=== PATIENT | male | born 1950 | race Caucasian/White ===

== ENCOUNTER 2018-01-16 05:49 | Inpatient (IN) | payer MEDICARE, OTHER ==
[2018-01-16 06:18] LABS: #Eosinphils 0.2 thou/uL (0.0-0.7); #Lymphocytes 1.6 thou/uL (1.20-3.40); #Monocytes 0.7 thou/uL (0.11-0.59); #Neutrophils 5.7 thou/uL (1.40-6.50); %Basophils 0.1 % (0.0-1.0); %Eosinophils 2.5 % (0.0-10.0); %Monocytes 8.2 % (0.0-10.0); %Neutrophils 70.2 % (42.0-75.0); Hemoglobin 14.5 g/dL (14.0-18.0); Mean Corpuscular HGB CONC 34.6 g/dL (32.0-36.0); Mean Corpuscular Hemoglobin 32.7 pg (27.0-31.0); Mean Corpuscular Volume 94.7 fl (80.0-94.0); Mean Platelet Volume 7.2 fL (7.4-10.4); Platelet Count 142 thou/uL (130-400); RBC Distribution Width 12.6 % (11.5-14.5); Red Blood Cell (RBC) Count 4.44 mill/uL (4.70-6.10); White Blood Cell (WBC) Count 8.2 thou/uL (4.8-10.8)
[2018-01-16 06:32] LABS: ALT (SGPT) 27 U/L (8-55); AST (SGOT) 21 U/L (5-34); Albumin 4.6 g/dL (3.4-4.8); Alkaline Phosphatase 46 U/L (40-150); Anion Gap 23 mmol/L (10-20); BUN (Urea Nitrogen) 16 mg/dL (8.4-25.7); Bilirubin, Total 0.4 mg/dL (0.2-1.2); Calc. Creatinine Clearance 0 mL/min (70-130); Calcium 9.6 mg/dL (7.8-10.44); Carbon Dioxide 21 mmol/L (23-31); Chloride 92 mmol/L (98-107); Estimated GFR-MDRD 67; Glucose 178 mg/dL (80-115); Magnesium 1.9 mg/dL (1.6-2.6); Potassium 3.5 mmol/L (3.5-5.1); Protein, Total 7.6 g/dL (5.8-8.1); Sodium 132 mmol/L (136-145)
[2018-01-16 06:36] LABS: CKMB 2.2 ng/mL (0-6.6); Troponin I Less than 0.010 ng/mL (< 0.028)
[2018-01-16] MEDS ORDERED: Enoxaparin Sodium 100 MG/ML SYRINGE ONE (07:25)
--- NOTE | 2018-01-16 07:56 | RAD ---
PORTABLE CHEST: HISTORY: Chest pain. COMPARISON: 05/09/13. FINDINGS: Cardiomegaly with postop sternotomy change. AICD leads. Lung jarrett are clear. No evidence of vasc ular congestion or edema. No evidence of focal infiltrate or effusion. IMPRESSION: Cardiomegaly. No acute lung process. POS: [facility]
[2018-01-16] MEDS ORDERED: Magnesium Sulfate 2 GM/100 ML BAG ONE (07:59)
[2018-01-16] MEDS ORDERED: Amiodarone HCl 450 MG in Dextrose 5% in Water 250 ML IVPB SCH ×2 (08:30→16:45)
[2018-01-16] MEDS ORDERED: NS 0.9% w/ 40 MEQ KCL 1,000 ML IV SCH (08:45)
[2018-01-16 09:19] LABS: Troponin I 0.013 ng/mL (< 0.028)
[2018-01-16 09:48] VITALS: BMI 34.3
[2018-01-16] MEDS ORDERED: Prevnar 13-Val Conj/PF 0.5 ML SYRINGE IM ONE (10:30)
[2018-01-16] MEDS ORDERED: Potassium Chloride 20 MEQ TAB PO SCH (11:15)
--- NOTE | 2018-01-16 11:29 | CON ---
DATE OF CONSULTATION: 01/16/2018 SERVICE: Pulmonary Medicine REASON FOR CONSULTATION: ICU patient. HISTORY OF PRESENT ILLNESS: The patient is a 67-year-old white male with past medical history significant for coronary artery disease. He has a defibrillator in place. He developed unstable angina over a short period of time. He presented to the Emergency Department with chest discomfort. He was going to be placed in observation, but developed a wide complex tachyarrhythmia. He underwent defibrillation and was subsequently transitioned to the ICU for very close observation. He currently denies any chest pain, nausea, vomiting, fevers or chills. He is breathing comfortably. He is on room air and has no complaints. He does not appear septic. He returned into a sinus rhythm with a bundle branch. PAST MEDICAL HISTORY: 1. Coronary artery disease. 2. Chronic systolic heart failure. 3. Hypertension. 4. Dyslipidemia. 5. Hypothyroidism. 6. Major depressive disorder. 7. Type 2 diabetes mellitus. PAST SURGICAL HISTORY: 1. Coronary bypass graft in 2002 with redo in 2010. 2. Percutaneous coronary intervention in 2012. ALLERGIES: No known drug allergies. MEDICATIONS: A list of his inpatient medications were reviewed. No specific updates were made at this time. FAMILY HISTORY: Noncontributory. SOCIAL HISTORY: He drinks beer on most days. He quit smoking a long time ago and only a [id number] history of smoking. He does not do illicit drugs. He has no exposure to chemicals, dust, asbestos or tuberculosis. REVIEW OF SYSTEMS: General, head, ears, eyes, nose, throat, cardiovascular, respiratory, GI, , musculoskeletal, neurologic and skin is negative except as mentioned in the HPI. PHYSICAL EXAMINATION: VITAL SIGNS: Afebrile, pulse 81, blood pressure 118/65, respirations 20, saturation 96% on 2 liters nasal cannula. . GENERAL: The patient awake, alert, in no apparent distress. LUNGS: Excellent air entry. There is no prolonged expiratory phase or wheezing present. HEART: Normal rate, regular. ABDOMEN: Soft, nontender, nondistended. Bowel sounds are positive. MUSCULOSKELETAL: No cyanosis or clubbing. There is trace pitting in the bilateral lower extremities. NEUROLOGIC: Grossly nonfocal. LABORATORY DATA: WBC 8.2, hemoglobin 14.5, platelets 142,000. D-dimer less than 0.27. Creatinine 1.09, potassium 3.5. Liver function studies are essentially unremarkable. BNP 368, which is slightly above baseline. Troponin 0.013 and barely up trending. IMAGING: Chest x-ray demonstrates AICD pacemaker in place. There are sternotomy wires that are evident. There is an enlarged cardiac silhouette, but I do not identify any acute pleural parenchymal abnormalities. Echocardiogram from 2012 demonstrated 20-25% ejection fraction, atrial enlargement, moderate mitral regurgitation. ASSESSMENT: 1. Acute hypoxic respiratory failure, minimal. 2. Acute on chronic systolic and valvular heart failure. 3. Wide complex tachyarrhythmia, status post cardioversion and returned to sinus rhythm. DISCUSSION AND PLAN: The patient will undergo evaluation by Cardiology. I will replace potassium and check a magnesium tomorrow morning. Pulmonary Critical Care will continue to follow along while he is watched very closely on telemetry in the ICU for the next 24 hours. 70 minutes have been devoted to this patient in various activities. I personally reviewed all imaging studies and laboratory data noted within this document. For fifty percent of this time, I was interacting with the patient at the bedside or coordinating care with the care team. For the remainder of the time I was immediately available to the patient in the hospital unit. MISA
[2018-01-16] MEDS ORDERED: Ondansetron ODT 4 MG TAB PO PRN (12:07)
[2018-01-16] MEDS ORDERED: HumaLOG 300 UNITS/3 ML VIAL SC PRN ×2 (12:07)
[2018-01-16] MEDS ORDERED: HYDROcodone/Acetaminophen 5/325 mg Tablet PO PRN (12:07)
[2018-01-16] MEDS ORDERED: Dextrose 50% Abboject 50 ML SYRINGE SLOW IVP PRN (12:07)
[2018-01-16] MEDS ORDERED: Ondansetron HCl/PF 4 MG/2 ML Vial IVP PRN (12:07)
[2018-01-16] MEDS ORDERED: Dextrose 5% in Water 1,000 ML IV PRN (12:07)
[2018-01-16] MEDS ORDERED: Acetaminophen 325 MG TAB PO PRN (12:07)
[2018-01-16 12:48] LABS: CKMB 3.9 ng/mL (0-6.6); Troponin I 0.011 ng/mL (< 0.028)
--- NOTE | 2018-01-16 15:00 | HP ---
PRIMARY CARE PHYSICIAN: Dr Eliazar Sol. DATE OF ADMISSION: 01/16/2018 TIME OF SERVICE: 1220 hours. CHIEF COMPLAINT: Chest pain. HISTORY OF PRESENT ILLNESS: Mr. Moreau is a 67-year-old male with history of chronic alcohol use, i schemic cardiomyopathy and EF around 18%, followed by Dr. Rex Zamudio, hypothyroidism, hypertensi on, hyperlipidemia, diabetes, and known coronary disease with a CABG in the past, who presents to the emergency department today with chest pressure. Patient had an episode of chest pressure yesterday lasting just a few minutes. EMS was called and ca me to his residence. They gave him some sublingual nitro. He immediately felt better, so decided no t to be transported. He did well overnight, but this morning around 6:00 a.m., had recurrence. EMS came and gave him anot her nitro and his symptoms resolved and he was subsequently transported to the emergency department. Here, he was seen and evaluated. Initial biomarkers were negative. EKG was unremarkable, during the monitoring process. Patient did develop a 10-beat run of nonsustained ventricular tachycardia. His AICD did not shock him at that time. We were subsequently called for admission. After that call, patient developed sustained ventricular tachycardia and some chest discomfort and sh ortness of breath. He was subsequently deemed to be unstable, was sedated and cardioverted. He was transferred to the ICU post-procedure. Patient denies any fevers or chills, nausea, and vomiting. Chest discomfort he had during his episod es of V-tach was the same as he had last night and early this morning. Cardiology has been made aware. No other current complaints. He never had anything like this before. He has never had an AICD disch arge. He has followup with Dr. Zamudio last time about a month ago. At that time, he was found to have an AICD that may need upgrade to a dual lead, but he does not know what the status of his battery was. No other current complaints. PAST MEDICAL HISTORY: 1. Chronic systolic congestive heart failure with EF of 18%. 2. Ischemic cardiomyopathy. 3. Hypothyroidism, acquired. 4. Hypertension, essential. 5. Hyperlipidemia, unspecified. 6. Diabetes mellitus type 2, non-insulin dependent. 7. Coronary artery disease. PAST SURGICAL HISTORY: Includes, 1. Coronary bypass grafting, the first surgery at age of 36, second one several years ago. 2. AICD implantation about 7 years ago. 3. Cholecystectomy remotely. 4. Bilateral cataract repair. HOME MEDICATIONS: 1. Lasix 40 mg daily. 2. Plavix 75 mg daily. 3. Coreg 12.5 mg p.o. b.i.d. 4. Aspirin 325 mg daily. 5. Multivitamin daily. 6. Losartan 50 mg p.o. daily. 7. Levothyroxine 100 mcg daily. 8. Crestor 20 mg p.o. at bedtime. 9. Paxil 20 mg daily. 10. Metformin 1000 mg p.o. b.i.d. 11. CoQ10 of 100 mg daily. ALLERGIES: PENICILLIN causes a rash. FAMILY HISTORY: Significant for mom and dad living and well into their 90s. They both now. SOCIAL HISTORY: Drinks 4-5 drinks a day. He does not know that he has ever gone with more than 48 h ours without an alcoholic beverage. He does not get shaky or have any agitation or DTs at 48-hour ma rk. He used tobacco in the past, but has not smoked in number of years. No IV drug use. 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 REVIEW OF SYSTEMS: All systems reviewed and negative except as stated as per HPI. PHYSICAL EXAMINATION: VITAL SIGNS: Temperature 98.3, pulse 81, blood pressure 124/61, respiratory rate 17, sat 98% on 3 li ters. GENERAL: He is awake. He is alert. He is oriented x3. He is an obese white male, appears to be in no acute distress. HEENT: Normocephalic, atraumatic. Pupils equal, round and reactive bilaterally. Central faces, has increased erythema, has almost a rhinophyma. Mucous membranes are moist. No visible lesions, no th sevilla. NECK: Supple. No lymphadenopathy, JVD, or thyromegaly. He has normal carotid upstroke. I do not a ppreciate bruits. LUNGS: Clear to auscultation bilaterally. No wheezes, no rales, no rhonchi. Good air movement. Sy mmetrical chest excursion. No prolonged expiratory phase. CARDIOVASCULAR: Normal S1 and S2. Has a faint 2/6 holosystolic murmur best heard at the left upper sternal border, does not radiate. ABDOMEN: Obese, it is nontender, nondistended, no mass or organomegaly. He did not feel any fluid. EXTREMITIES: Show no cyanosis, no clubbing. He has got 1+ peripheral edema. SKIN: Warm, moist, and well perfused. He has no other rash or lesions. NEUROLOGIC: Cranial nerves II-XII are grossly intact. There are no focal neurologic deficits. He h as normal speech pattern, 5/5 strength in all 4 extremities. MUSCULOSKELETAL: Normal to inspection. Large joints appear normal. There is no evidence of inflamm ation or palpable effusions. LABORATORY DATA: Sodium is 132, potassium 3.5, chloride 97, bicarbonate 26, BUN 16, creatinine 1.09 from his baseline around 0.8. Glucose 178. Liver function completely within normal limits. CBC ivan wed a white count of 8.2, hemoglobin 14.5, hematocrit 42.0, platelet count is 142,000. D-dimer was undetectable less than 0.27. BNP elevated at 368, CK-MB normal at 2.2. Initial troponin I is less than 0.010, repeat after cardioversion of 0.013. Chest x-ray showing no acute cardiopulmonary disease. ASSESSMENT AND PLAN: 1. Unstable angina: The patient has escalated symptoms present during episodes of sustained and non sustained ventricular tachycardia. Patient will be admitted to the Critical Care Unit on an amiodaro ne drip. We will continue his Coreg, we will hold his losartan at present. I will continue his aspi rin daily. Cardiology consultation has been requested. Patient will be seen by Pulmonary Critical C are. We will get serial cardiac biomarkers, and follow up with Cardiology recommendations. 2. Ventricular tachycardia, sustained. AICD did not shock him. We will get an AICD interrogation. We will ask cardiology's opinion. 3. Elevated troponin, undetectable to 0.013 either demand ischemia, likely elevated from his cardiov ersion. We will trend these out. 4. Diabetes mellitus type 2, non-insulin dependent. Hold metformin. Use sliding scale insulin for correction. 5. History of coronary artery disease as above. 6. Hyperlipidemia, on Crestor. We will continue. 7. Hypertension, essential. Patient is on losartan, Lasix, Coreg daily. We will continue these at present. 8. Hypothyroidism, on replacement. We will continue. 9. Chronic systolic congestive heart failure secondary to ischemic cardiomyopathy. There does not a ppear to be any florid heart failure present. I will continue to monitor.
--- NOTE | 2018-01-16 15:33 | CON ---
DATE OF CONSULTATION: 01/16/2018 CRITICAL CARE NOTE CRITICAL CARE TIME: 30 minutes. HISTORY OF PRESENT ILLNESS: This is an unfortunate 67-year-old gentleman with a history of severe ischemic cardiomyopathy who presents with chest discomfort and palpitations. The patient has previously undergone coronary artery bypass surgery in 1996. He underwent a second coronary artery bypass surgery in 2010. He had a RAM placed to the LAD and a saphenous vein graft to PDA in 2012. The patient underwent repeat cardiac catheterization and had PTCA and stent placed into the saphenous vein graft to the right coronary artery. The patient had been in his usual state of health when he developed chest discomfort. He states chest discomfort and palpitations. The patient was noted to have a very rapid heart rate. He was in ventricular tachycardia and underwent an electrical cardioversion. The patient denies having any present palpitations or chest discomfort. PAST MEDICAL HISTORY: 1. Ischemic cardiomyopathy. 2. Hypertension. MEDICATIONS: See nursing list. SOCIAL HISTORY: Former smoker, quit in 1986. FAMILY HISTORY: Strong family history of heart disease. MEDICATIONS: Lasix 40 daily, Plavix 75 daily, Coreg 12.5 b.i.d., aspirin 325 daily, losartan 50 daily, Synthroid 100 mcg daily, Crestor 20 at bedtime, and metformin 1000 b.i.d. PHYSICAL EXAMINATION: GENERAL: This is an elderly gentleman in no acute distress. VITAL SIGNS: Blood pressure was 102/67. NECK: Showed no jugular distention. LUNGS: Clear to auscultation. HEART: Regular rate and rhythm with a normal S1, S2. ABDOMEN: Distended. EXTREMITIES: Showed trace edema. LABORATORY RESULTS: Revealed he had a white blood count 8.2, hemoglobin 14.5, hematocrit 42.0, and platelets 142. Sodium is 132, potassium 3.5, chloride 92, bicarbonate 21, BUN 16, creatinine 1.0, troponin less than 0.11. BNP 368. His EKG revealed sustained ventricular tachycardia. IMPRESSION: 1. Ventricular tachycardia. 2. History of coronary artery bypass surgery on 2 occasions. 3. History of PTCA stent placed in the right coronary artery bypass graft. 4. Hypertension. 5. Diabetes mellitus. 6. Dyslipidemia. This gentleman presents with a ventricular tachycardia. This appears to be a primary arrhythmia. We will ask EP to evaluate. The patient has been started on amiodarone. We will follow this patient with you throughout his hospitalization. Continue IV amiodarone. MTDD
[2018-01-16] MEDS: Carvedilol 6.25 MG TAB PO SCH (16:41)
[2018-01-16] MEDS ORDERED: Enoxaparin Sodium 100 MG/ML SYRINGE SC SCH ×2 (19:30→21:00)
[2018-01-16] MEDS: Rosuvastatin 20 MG TAB PO SCH (20:53)
[2018-01-16] MEDS: Famotidine 20 MG TAB PO SCH (20:53)
[2018-01-16 21:02] LABS: CKMB 3.2 ng/mL (0-6.6); Troponin I Less than 0.010 ng/mL (< 0.028)
[2018-01-17 04:40] LABS: Anion Gap 14 mmol/L (10-20); BUN (Urea Nitrogen) 14 mg/dL (8.4-25.7); Calc. Creatinine Clearance 119 mL/min (70-130); Calcium 9.2 mg/dL (7.8-10.44); Carbon Dioxide 25 mmol/L (23-31); Cardiac Risk 2.8 (Less than 4.5); Chloride 104 mmol/L (98-107); Cholesterol 87 mg/dl (< 200 Desired); Estimated GFR-MDRD 87; Glucose 131 mg/dL (80-115); HDL Cholesterol 31 mg/dL (>60 Neg Risk); Hemoglobin A1c 7.1 % (4.0-6.0); LDL Cholesterol, Calculated 23 mg/dL; Magnesium 2.1 mg/dL (1.6-2.6); Phosphorus 3.2 mg/dL (2.3-4.7); Sodium 139 mmol/L (136-145); Triglycerides 165 mg/dL (Less than 150)
[2018-01-17 04:45] LABS: Troponin I Less than 0.010 ng/mL (< 0.028)
[2018-01-17 05:23] LABS: #Eosinphils 0.2 thou/uL (0.0-0.7); #Lymphocytes 1.6 thou/uL (1.20-3.40); #Monocytes 0.6 thou/uL (0.11-0.59); #Neutrophils 3.6 thou/uL (1.40-6.50); %Basophils 0.1 % (0.0-1.0); %Eosinophils 3.9 % (0.0-10.0); %Lymphocytes 26.4 % (21.0-51.0); %Monocytes 10.6 % (0.0-10.0); Band 2 % (5-11); Hemoglobin 13.2 g/dL (14.0-18.0); Lymphocytes 33 % (21-51); MDiff Complete? YES; Macrocytosis SLIGHT = 6-15 cells (100X) (0-5/hpf); Mean Corpuscular HGB CONC 35.1 g/dL (32.0-36.0); Mean Corpuscular Hemoglobin 33.2 pg (27.0-31.0); Mean Corpuscular Volume 94.5 fl (80.0-94.0); Mean Platelet Volume 7.1 fL (7.4-10.4); Monocytes 8 % (0-10); Neutrophil 56 % (42-75); PLT Morphology Comment Appears Decreased; Platelet Count 112 thou/uL (130-400); RBC Distribution Width 12.4 % (11.5-14.5); Reactive Lymphocytes 1 % (0-10); Red Blood Cell (RBC) Count 3.98 mill/uL (4.70-6.10); White Blood Cell (WBC) Count 6.1 thou/uL (4.8-10.8)
[2018-01-17] MEDS: Levothyroxine Sodium 100 MCG TAB PO SCH (06:26)
--- NOTE | 2018-01-17 08:57 | PRG ---
DATE OF SERVICE: 01/17/2018 SERVICE: Pulmonary Medicine INTERVAL HISTORY: The patient is doing fine from a respiratory standpoint. He is not having any chest pressure. He did not have any events on telemetry. Otherwise, there has been no interval change to his condition. PHYSICAL EXAMINATION: VITAL SIGNS: Afebrile, pulse 73, blood pressure 108/55, respirations 22, saturation 95% on room air. GENERAL: The patient is awake, alert, no apparent distress. LUNGS: Excellent air entry without prolonged expiratory phase, wheezing, rhonchi or crackles. HEART: Normal rate, regular. ABDOMEN: Soft, nontender, nondistended. Bowel sounds are positive. MUSCULOSKELETAL: No cyanosis or clubbing. No pitting in the bilateral lower extremities. NEUROLOGIC: Grossly nonfocal. LABORATORY DATA: WBC 6.1, hemoglobin 13.2, platelets 112,000. D-dimer 0.27. Basic metabolic profile; magnesium, phosphorus, and cholesterol are essentially unremarkable other than a slightly elevated triglyceride level. Cardiac enzymes are negative x2. ASSESSMENT: 1. Acute hypoxic respiratory failure, minimal. 2. Acute on chronic systolic and valvular heart failure. 3. Ventricular tachycardia, status post cardioversion and return to sinus rhythm. DISCUSSION AND PLAN: The patient is stable for transition out of the IMCU to the telemetry unit. We will continue to monitor his heart on telemetry. We will work on moving him a little bit more today. Pulmonary Critical Care will continue to follow him while he remains in house, but he may benefit from an outpatient polysomnogram. MISA
[2018-01-17] MEDS: Furosemide 40 MG TAB PO SCH (09:00)
[2018-01-17] MEDS: PARoxetine 20 MG TAB PO SCH (09:00)
[2018-01-17] MEDS: Carvedilol 6.25 MG TAB PO SCH ×2 (09:00→16:19)
[2018-01-17] MEDS: Clopidogrel Bisulfate 75 MG TAB PO SCH (09:00)
[2018-01-17] MEDS: Losartan 25 MG TAB PO SCH (09:00)
[2018-01-17] MEDS ORDERED: Aspirin 325 MG TAB PO SCH (09:00)
[2018-01-17] MEDS: Famotidine 20 MG TAB PO SCH ×2 (09:00→20:53)
[2018-01-17] MEDS: Enoxaparin Sodium 100 MG/ML SYRINGE SC SCH ×2 (09:01→20:53)
--- NOTE | 2018-01-17 11:31 | EKG ---
Test Reason : POST SHOCK Blood Pressure : / mmHG Vent. Rate : 084 BPM Atrial Rate : 084 BPM P-R Int : 236 ms QRS Dur : 208 ms QT Int : 470 ms P-R-T Axes : 063 -80 079 degrees QTc Int : 555 ms Sinus rhythm with 1st degree A-V block Right bundle branch block Left anterior fascicular block Bifascicular block Left ventricular hypertrophy with repolarization abnormality Cannot rule out Septal infarct , age undetermined Abnormal ECG V-tach resolved Confirmed by AVELINO PEREZ M.D. ([id number]), tape editor ADALBERTO CONDON ([id number] on 01/17/2018 11:31:39 AM Referred By: Confirmed By:AVELINO PEREZ M.D.
--- NOTE | 2018-01-17 11:31 | EKG ---
Test Reason : Blood Pressure : / mmHG Vent. Rate : 095 BPM Atrial Rate : 095 BPM P-R Int : 190 ms QRS Dur : 210 ms QT Int : 452 ms P-R-T Axes : 062 -82 078 degrees QTc Int : 568 ms Sinus rhythm with frequent Premature ventricular complexes Left axis deviation Right bundle branch block Septal infarct , age undetermined Abnormal ECG No changes Confirmed by ANA Keller, AVELINO ([id number]), film or videotape editor ADALBERTO CONDON ([id number]) on 01/17/2018 11:31:02 AM Referred By: ANA Confirmed By:AVELINO PEREZ M.D.
--- NOTE | 2018-01-17 13:25 | PDOC.PN ---
- Subjective Encounter Start Date: 01/17/18 Encounter Start Time: 10:50 Pt sleeping, but easily arousable. breathing fine. no more CP, no VTach, no F/C , no N/V/d/c. ricki amio. Pacer interrogated and low rate too low, adjusted No New complaints All systems reviewed and neg x as above - Objective Resuscitation Status: Resuscitation Status FULL:Full Resuscitation MAR Reviewed: Yes Vital Signs & Weight: Vital Signs (12 hours) Temp Pulse Resp BP BP Pulse Ox 01/17/18 11:00 97.6 F 76 18 123/64 93 L 01/17/18 09:00 120/67 01/17/18 08:00 98.0 F 73 22 H 01/17/18 07:50 98.0 F 73 22 H 108/55 L 95 01/17/18 04:00 97.9 F 68 18 133/72 01/17/18 01:52 97 Weight Weight 230 lb 12.8 oz Most Recent Monitor Data Heart Rate from ECG 72 NIBP 128/74 NIBP BP-Mean 95 Respiration from ECG 13 SpO2 97 I&O: 01/16/18 01/17/18 01/18/18 06:59 06:59 06:59 Intake Total 200 Output Total 3050 Balance -2850 Result Diagrams: 01/17/18 04:11 01/17/18 04:11 Additional Labs: Accuchecks 01/17/18 01/16/18 01/16/18 10:32 20:46 16:28 POC Glucose 204 H 148 H 148 H 01/16/18 14:07 POC Glucose 136 H Phys Exam - Physical Examination Constitutional: NAD HEENT: PERRLA, moist MMs, sclera anicteric, oral pharynx no lesions Neck: no nodes, no JVD, supple, full ROM Respiratory: no wheezing, no rales, no rhonchi, clear to auscultation bilateral Cardiovascular: RRR, no significant murmur, no rub Gastrointestinal: soft, non-tender, no distention, positive bowel sounds Musculoskeletal: pulses present, edema present Neurological: non-focal, normal sensation, moves all 4 limbs Lymphatic: no nodes Psychiatric: normal affect, A&O x 3 Skin: no rash, normal turgor, cap refill <2 seconds Dx/Plan (1) Ventricular tachycardia (paroxysmal) Code(s): I47.2 - VENTRICULAR TACHYCARDIA Status: Acute (2) Unstable angina Status: Resolved (3) DM2 (diabetes mellitus, type 2) Status: Chronic Qualifiers: Diabetes mellitus co founder & ceo insulin use: without co founder & ceo use Diabetes mellitus complication detail: with peripheral angiopathy without gangrene (4) HTN (hypertension) Code(s): I10 - ESSENTIAL (PRIMARY) HYPERTENSION Status: Chronic Qualifiers: Hypertension type: essential hypertension Qualified Code(s): I10 - Essential (primary) hypertension (5) HLD (hyperlipidemia) Code(s): E78.5 - HYPERLIPIDEMIA, UNSPECIFIED Status: Chronic Qualifiers: Hyperlipidemia type: unspecified Qualified Code(s): E78.5 - Hyperlipidemia , unspecified (6) Hypothyroidism Code(s): E03.9 - HYPOTHYROIDISM, UNSPECIFIED Status: Chronic Qualifiers: Hypothyroidism type: acquired Qualified Code(s): E03.9 - Hypothyroidism, unspecified (7) CAD (coronary artery disease) Code(s): I25.10 - ATHSCL HEART DISEASE OF [place] CORONARY ARTERY W/O ANG PCTRS Status: Chronic Qualifiers: Coronary Disease-Associated Artery/Lesion type: bypass graft [place] vs. transplanted heart: [place] heart Associated angina: with unstable angina Qualified Code(s): I25.700 - Atherosclerosis of coronary artery bypass graft(s) , unspecified, with unstable angina pectoris - Plan cont current plan of care, plan discussed w/ family * . await EP consult. continue amio. franciscoer to tele
--- NOTE | 2018-01-17 14:55 | CON ---
DATE OF CONSULTATION: 01/17/2018 ELECTROPHYSIOLOGY CONSULTATION Katie SHEPARD dictating the scribe for Ron Hardy M.D. REASON FOR CONSULTATION: ICD discharge and ventricular tachycardia. HISTORY OF PRESENT ILLNESS: Mr. Moreau is a very pleasant, but unfortunate gentleman with a history of severe ischemic cardiomyopathy. He presented with chest pain and palpitations that were lasting 15-20 minutes at home. He has a history significant for myocardial infarction with bypass in 1996. He had a second bypass surgery in 2010 and additional stent of one of his saphenous vein grafts to th e PDA in 2012. He is known to our clinic, does have inclusion of a dual chamber ICD and was last see n in 09/2016. He continues to be in NYHA functional class 2-3 and that was in his usual state of hea lt, but did begin to experience persisting chest discomfort as well as some palpitations. When he p resented to the emergency room, he was found to be in ventricular tachycardia and underwent cardiover florence in the emergency room. He was started on amiodarone which continues to be administered via IV d rip. PAST MEDICAL HISTORY: 1. Coronary artery disease with prior myocardial infarction. 2. Coronary artery bypass graft surgery as well as PCI. Ischemic cardiomyopathy with an EF most rec ently estimated at 15-20%. 3. NYHA functional class 3. 4. Diabetes. 5. Dual chamber ICD in situ. 6. Peripheral vascular disease, status post left iliac vein graft and subsequent stenting. 7. Right iliac complete occlusion. 8. Dyslipidemia. 9. Underlying right bundle-branch block with left anterior fascicular block. ALLERGIES: None. HOME MEDICATIONS: Lasix 40 mg daily, Plavix 75 mg daily, Coreg 12.5 mg b.i.d., aspirin 325 mg daily, losartan 50 mg daily, Synthroid 100 mcg daily, Crestor 20 mg p.o. at bedtime, metformin 1000 mg b.i. d. SOCIAL HISTORY: History of tobacco habituation, quit in 1986. FAMILY HISTORY: Strongly positive for coronary artery disease. PHYSICAL EXAMINATION: GENERAL: Well-nourished, well-groomed, gentleman in no apparent distress. He is alert and oriented. Speech is clear. Affect is appropriate. NECK: Supple, without jugular venous distention. LUNGS: Clear to auscultation bilaterally. Respirations are even and unlabored. HEART: Heart rate is regularly regular with a normal S1, S2. PMI is faint, but palpable. ABDOMEN: Obese, soft, and nontender with distant bowel sounds noted throughout. EXTREMITIES: Warm and dry to touch without clubbing, cyanosis, but with trace edema bilaterally. NEUROLOGIC: Grossly intact and nonfocal. LABORATORY AND X-RAY FINDINGS: Hemoglobin 13.2, hematocrit 37.6, platelet count is 112. Chemistry w as reviewed and is unremarkable. Telemetry and EKG reveals sinus rhythm with an atypical left bundle branch. DEVICE INTERROGATION: The patient has a [employer] Virtuoso II DR dual chamber pacemaker defibrillat or. Battery voltage is nearing AMY with an estimated 3-6 months left before reaching elective replac ement interval. Lead parameters are adequate. Patient did have sustained ventricular tachycardia, a lthough below the ventricular detection rate zone, thus going untreated by the device, otherwise a no rmal functioning device. VT detection zone was decreased to start at 145 beats per minute. IMPRESSION: 1. Chronic systolic heart failure and ischemic cardiomyopathy, well compensated. 2. Inclusion of a dual chamber ICD revealing sustained ventricular tachycardia below the VT detectio n rate. VT detection lower limit set to 145 beats per minute. Nearing elective replacement interval . 3. Atypical left bundle-branch block. 4. Extensive history of coronary artery disease. RECOMMENDATIONS: We discussed ventricular tachycardia with Mr. Moreau as well as ICD therapies. As mentioned above, his VT detection rate lower limit was set to 145 beats per minute. Regarding the a miodarone, I would not recommend continued therapy with this as it will lower his VT rate should they recur. If he remains on amiodarone, he may have an even slower VT that again and goes undetected or alternatively may make it more difficult for the ICD to successfully cardiovert him out of his ventr icular tachycardia making it recurrence. At this point, with a lower VT detection rate, the recommen dation would be for optimizing beta mandeep therapy as well as investigating into possible causes of the ventricular tachycardia. He does have an atypical left bundle pattern on EKG and has been discus sed with him to upgrade to a biventricular ICD which in the past he has declined until he requires ge nerator change. Device is anticipating this to be in 3-6 months. We have requested to see him back in clinic in 4-6 weeks to further discuss biventricular ICD upgrade as well as monitor his progress f or any recurrence of ventricular tachycardia. Patient voices understanding and agrees with this plan of care. I have increased his carvedilol slightly and have discontinued his amiodarone. Thank you for allowing us to participate in the care of this patient.
[2018-01-17] MEDS: Rosuvastatin 20 MG TAB PO SCH (20:53)
[2018-01-18] MEDS: Levothyroxine Sodium 100 MCG TAB PO SCH (06:00)
[2018-01-18 07:37] VITALS: TEMP 97.7
[2018-01-18] MEDS: Carvedilol 6.25 MG TAB PO SCH (08:37)
[2018-01-18] MEDS: Famotidine 20 MG TAB PO SCH (08:37)
[2018-01-18] MEDS: Enoxaparin Sodium 100 MG/ML SYRINGE SC SCH (08:37)
[2018-01-18] MEDS: Furosemide 40 MG TAB PO SCH (08:38)
[2018-01-18] MEDS: Clopidogrel Bisulfate 75 MG TAB PO SCH (08:38)
[2018-01-18] MEDS: PARoxetine 20 MG TAB PO SCH (08:38)
[2018-01-18] MEDS: Losartan 25 MG TAB PO SCH (08:39)
[2018-01-18 08:41] VITALS: BP 140/72
--- NOTE | 2018-01-18 10:23 | PDOC.CTH ---
Cardiology Progress Note - Subjective He is doing well. No new issues. - Objective Vital Signs Temp Pulse Resp BP BP BP Pulse Ox 01/18/18 08:37 140/72 01/18/18 07:42 97.7 F 62 14 96 01/18/18 07:36 97.7 F 62 14 117/72 96 01/18/18 05:06 98.2 F 73 18 128/70 94 L 01/18/18 00:00 98.6 F 70 18 127/79 99 Weight 229 lb 3.2 oz 01/17/18 01/18/18 01/19/18 06:59 06:59 06:59 Intake Total 200 250 Output Total 3050 800 Balance -2850 -550 - Physical Examination General/Neuro: alert & oriented x3, NAD Neck: no JVD present Lungs: CTA, unlabored respirations Heart: RRR Abdomen: NT/ND Extremities: other: (no edema) - Telemetry Telemetry Rhythm: NSR - Labs Result Diagrams: 01/17/18 04:11 01/17/18 04:11 Troponin/CKMB CK-MB (CK-2) 3.0 ng/mL (0-6.6) 01/17/18 04:11 Troponin I Less than 0.010 ng/mL (< 0.028) 01/17/18 04:11 - Assessment/Plan 1. VT 2. AICD 3. CAD, S?P CABG and subsequent stent to RCA SVG 4. LBBB PLAN: - May discharge home - Follow up with EP as AICD is close to AMY. - Will need upgrade to BiV AICD due to LBBB on generator replacement.
== END 2018-01-18 11:37 | disposition home or self-care (01) | DRG 308 ==
LOC: ERS 05:49 → CCU 08:08 → IMCU/EMU 17:20 → SCSEROBS 01-17 14:22
PROVIDERS: ADMIT Internal Medicine Infectious Disease; ATTEND Internal Medicine Infectious Disease
PROC: 5A2204Z Restoration of Cardiac Rhythm, Single (ICD-10-PCS; principal; 2018-01-16)
DX: I47.2 Ventricular tachycardia (principal); J96.01 Acute respiratory failure with hypoxia; I50.23 Acute on chronic systolic (congestive) heart failure; I25.110 Atherosclerotic heart disease of native coronary artery with unstable angina pectoris; I11.0 Hypertensive heart disease with heart failure; E11.9 Type 2 diabetes mellitus without complications; I25.5 Ischemic cardiomyopathy; E03.9 Hypothyroidism, unspecified; I25.2 Old myocardial infarction; Z87.891 Personal history of nicotine dependence; Z88.0 Allergy status to penicillin; Z79.84 Long term (current) use of oral hypoglycemic drugs; Z79.02 Long term (current) use of antithrombotics/antiplatelets; Z79.82 Long term (current) use of aspirin; Z79.899 Other long term (current) drug therapy; Z95.1 Presence of aortocoronary bypass graft; Z95.5 Presence of coronary angioplasty implant and graft; Z95.810 Presence of automatic (implantable) cardiac defibrillator
CPT/HCPCS: 36415; 36416; 71045; 80048; 80053; 80061; 82553; 83036; 83735; 83880; 84100; 84484; 85025; 85379; 93005; A4216; J0282; J1650; J3475; J7070

== ENCOUNTER 2019-05-24 03:00 | Inpatient (IN) | payer MEDICARE ==
[2019-05-24] MEDS ORDERED: Amiodarone 150 MG/3 ML VIAL ONE ×4 (03:01→06:18)
[2019-05-24 03:41] LABS: #Eosinphils 0.5 thou/uL (0.0-0.7); #Lymphocytes 1.3 thou/uL (1.20-3.40); #Monocytes 0.8 thou/uL (0.11-0.59); #Neutrophils 6.6 thou/uL (1.40-6.50); %Basophils 0.4 % (0.0-1.0); %Eosinophils 5.3 % (0.0-10.0); %Lymphocytes 14.4 % (21.0-51.0); %Monocytes 8.1 % (0.0-10.0); %Neutrophils 71.7 % (42.0-75.0); Hemoglobin 14.1 g/dL (14.0-18.0); Mean Corpuscular HGB CONC 35.3 g/dL (32.0-36.0); Mean Corpuscular Hemoglobin 33.1 pg (27.0-31.0); Mean Corpuscular Volume 93.8 fL (78.0-98.0); Mean Platelet Volume 7.9 fL (7.4-10.4); Platelet Count 152 thou/uL (130-400); RBC Distribution Width 12.7 % (11.5-14.5); Red Blood Cell (RBC) Count 4.27 mill/uL (4.70-6.10); White Blood Cell (WBC) Count 9.2 thou/uL (4.8-10.8)
[2019-05-24] MEDS ORDERED: Magnesium 5 GM/10 ML Abboject SYRINGE ONE (04:00)
[2019-05-24] MEDS ORDERED: EPINEPHrine 1 MG/ML AMP ONE (04:00)
[2019-05-24 04:01] LABS: ALT (SGPT) 25 U/L (8-55); AST (SGOT) 21 U/L (5-34); Albumin 4.4 g/dL (3.4-4.8); Alkaline Phosphatase 39 U/L (40-110); Anion Gap 20 mmol/L (10-20); BUN (Urea Nitrogen) 14 mg/dL (8.4-25.7); Bilirubin, Total 0.3 mg/dL (0.2-1.2); CK (CPK) 128 U/L (30-200); Calc. Creatinine Clearance 0 mL/min (70-130); Carbon Dioxide 22 mmol/L (23-31); Chloride 98 mmol/L (98-107); Estimated GFR-MDRD 66; Globulin 2.8 g/dL (2.4-3.5); Glucose 190 mg/dL (80-115); Potassium 3.3 mmol/L (3.5-5.1); Protein, Total 7.2 g/dL (5.8-8.1); Sodium 137 mmol/L (136-145)
[2019-05-24 05:19] VITALS: BMI 32.6
[2019-05-24] MEDS ORDERED: Acetaminophen 325 MG TAB PO PRN (06:03)
[2019-05-24] MEDS ORDERED: Ondansetron PF 4 MG/2 ML Vial IVP PRN (06:03)
[2019-05-24] MEDS ORDERED: Ondansetron ODT 4 MG TAB PO PRN (06:03)
[2019-05-24] MEDS ORDERED: Dextrose 50% Abboject 50 ML SYRINGE SLOW IVP PRN (06:14)
[2019-05-24] MEDS ORDERED: Dextrose 5% in Water 1,000 ML IV PRN (06:14)
[2019-05-24] MEDS ORDERED: FLU VACC TS2019-20(65YR UP)/PF 180 MCG/0.5 ML SYRINGE IM ONE ×2 (06:30→21:00)
[2019-05-24] MEDS: HumaLOG 300 UNITS/3 ML VIAL SC PRN ×2 (06:32→16:25)
[2019-05-24 07:10] LABS: Troponin I 0.127 ng/mL (< 0.028)
[2019-05-24] MEDS ORDERED: PHOS-NAK 1 PKT PACK PO PRN ×2 (07:55)
[2019-05-24] MEDS ORDERED: Potassium Phosphate 15 MMOL in Sodium Chloride 0.9% 250 ML 250 ML IV PRN (07:55)
[2019-05-24] MEDS ORDERED: Potassium Phosphate 9 MMOL in Sodium Chloride 0.9% 100 ML IVPB PRN (07:55)
[2019-05-24] MEDS ORDERED: Magnesium Oxide 400 MG TAB PO PRN ×2 (07:55)
[2019-05-24] MEDS ORDERED: CCU ELECTROLYTE REPLACEMENT PROTOCOL FS PRN (07:55)
[2019-05-24] MEDS ORDERED: Potassium Chloride 40 MEQ in Sodium Chloride 0.9% 250 ML 250 ML IVPB PRN (07:55)
[2019-05-24] MEDS ORDERED: Potassium Chloride 40 MEQ in Premix Bag 1 BAG IVPB PRN (07:55)
[2019-05-24] MEDS ORDERED: Potassium Phosphate 12 MMOL in Sodium Chloride 0.9% 250 ML 250 ML IV PRN (07:55)
[2019-05-24] MEDS ORDERED: Magnesium 2 GM/50 ML 2 GM in Premix Bag 1 BAG IVPB PRN (07:55)
[2019-05-24] MEDS ORDERED: Potassium Chloride 20 MEQ TAB PO PRN (07:55)
[2019-05-24] MEDS: Amiodarone 450 MG, Admixture Fee 1 EACH in Dextrose 5% in Water 250 ML IVPB SCH ×3 (08:03→23:29)
[2019-05-24] MEDS: Clopidogrel Bisulfate 75 MG TAB PO SCH (08:19)
[2019-05-24] MEDS: Aspirin 325 MG TAB PO SCH (08:19)
[2019-05-24] MEDS: Enoxaparin Sodium 40 MG/0.4 ML SYRINGE SC SCH (08:19)
[2019-05-24] MEDS: Ubidecarenone 50 MG CAP PO SCH (08:19)
[2019-05-24] MEDS: Carvedilol 6.25 MG TAB PO SCH ×2 (08:19→20:39)
[2019-05-24] MEDS: Furosemide 40 MG TAB PO SCH (08:19)
[2019-05-24] MEDS: Multivit, Therapeutic 1 TAB PO SCH (08:20)
[2019-05-24 08:54] LABS: Calcium 9.1 mg/dL (7.8-10.44); Magnesium 2.2 mg/dL (1.6-2.6); Phosphorus 3.4 mg/dL (2.3-4.7)
[2019-05-24] MEDS ORDERED: Aspirin 325 MG TAB PO SCH (09:00)
[2019-05-24] MEDS ORDERED: Sotalol HCl 80 MG TAB PO SCH ×2 (09:00→11:45)
--- NOTE | 2019-05-24 11:31 | RAD ---
PORTABLE AP CHEST: Date: 05/24/19 HISTORY: Chest pain. COMPARISON: 01/16/18. FINDINGS: A triple lead left subclavian AICD device remains in place. Postsurgical changes related to CABG are again noted. Cardiac silhouette is magnified by projection. Pulmonary vasculature is within normal li mits. Lungs are clear. Pacing device overlies the right upper chest. There has been no significant in terval change compared to the prior exam. IMPRESSION: 1. Stable chest without evidence of an acute cardiopulmonary process. 2. Postsurgical changes related to CABG. POS: OFF
--- NOTE | 2019-05-24 11:45 | CON ---
DATE OF CONSULTATION: REASON FOR CONSULTATION: Recurrent VT, status post ICD discharge. HISTORY OF PRESENT ILLNESS: Mr. Moreau is a 68-year-old gentleman with history of ischemic cardiomyopathy, status post bypass surgery and stent placement. He states he recently had 7 discharges from his ICD. He was seen and evaluated by Dr. Whitfield in February 2019. At that time, we started sotalol. There was a plan on VT ablation. The patient has been set up in the upcoming weeks. Mr. Moreau has no episodes of chest pain, pressure, or associated symptoms. He was in normal state of health when the ICD discharged. Mr. Moreau is currently stable after being placed on IV amiodarone. PAST MEDICAL HISTORY: CAD, status post bypass surgery; CAD status post stent placement; severe PVD; hypothyroidism; and diabetes mellitus. PAST SURGICAL HISTORY: Stent placement to the right and left common iliac arteries, cholecystectomy, CABG in 1986 with redo in 2010, stent placement in 2012, ICD placement, and cataract surgery. HOME MEDICATIONS: Include: 1. Nitroglycerin. 2. Aspirin. 3. Multivitamin. 4. CoQ10. 5. Januvia. 6. Levothyroxine. 7. Paroxetine. 8. Metformin. 9. Plavix. 10. Coreg. 11. Furosemide. 12. Rosuvastatin. 13. Entresto. 14. Crestor. REVIEW OF SYSTEMS: Ten-point review of systems reviewed, as above, otherwise negative. PHYSICAL EXAMINATION: GENERAL: Patient is a pleasant gentleman, who is in no acute distress. The patient appears their stated age. VITAL SIGNS: Blood pressure 131/64, pulse 80, and temperature afebrile. NEUROLOGIC: The patient is alert and oriented x3 with no focal neurologic deficits. HEENT: Sclerae without icterus. Mouth has moist mucous membranes with normal pallor. NECK: No JVD. Carotid upstroke brisk. No bruits bilaterally. LUNGS: Clear to auscultation with unlabored respirations. BACK: No scoliosis or kyphosis. CARDIAC: Regular rate and rhythm with normal S1 and S2. No S3 or S4 noted. No significant rubs, murmurs, thrills, or gallops noted throughout the precordium. PMI is not displaced. There is no parasternal heave. ABDOMEN: Soft, nontender, nondistended. No peritoneal signs present. No hepatosplenomegaly. No abnormal striae. EXTREMITIES: 2+ femoral and 2+ dorsalis pedis pulses. No cyanosis, clubbing, or edema. SKIN: No gross abnormalities. PERTINENT LABORATORY DATA: Creatinine 1.1 and potassium 3.3. IMPRESSION: 1. Incessant ventricular tachycardia. 2. ICD discharge. 3. Coronary artery disease. 4. Status post bypass surgery. 5. Status post stent placement. 6. Severe peripheral vascular disease. RECOMMENDATIONS: 1. We will try to increase his potassium to above 4. 2. Increase sotalol to 120 b.i.d. 3. Continue IV amiodarone. 4. Attempt to reach out to in [place] for transfer. The patient is scheduled for VT ablation. 5. Magnesium level of 2.2. May supplement with 1 to 2 g of magnesium for stabilization. Job ID: [id number]
--- NOTE | 2019-05-24 15:31 | PDOC.HOSPP ---
- Subjective Subjective: Feels ok now. Had multiple discharges of the defibrillator. Each one felt worse than the one before. - Objective Vital Signs & Weight: Vital Signs (12 hours) Temp Pulse BP Pulse Ox 05/24/19 12:00 98.8 F 05/24/19 11:58 81 131/64 05/24/19 08:20 82 120/71 05/24/19 08:19 120/71 05/24/19 08:00 98 05/24/19 07:00 97.9 F 05/24/19 05:00 100 05/24/19 04:55 98.6 F Weight Weight 221 lb 5.506 oz Most Recent Monitor Data Heart Rate from ECG 69 NIBP 110/62 NIBP BP-Mean 74 Respiration from ECG 13 SpO2 98 I&O: 05/23/19 05/24/19 05/25/19 06:59 06:59 06:59 Intake Total 104 150 Output Total 300 1200 Balance -196 -1050 Result Diagrams: 05/24/19 03:12 05/24/19 03:12 Additional Labs: Accuchecks 05/24/19 05/24/19 11:07 06:28 POC Glucose 126 H 225 H Hospitalist ROS - Medication Medications: Active Medications Generic Name Dose Route Start Last Admin Trade Name Freq PRN Reason Stop Dose Admin Aspirin 325 mg 05/24/19 09:00 05/24/19 08:19 Aspirin PO 325 mg DAILY DESTINEE Administration Carvedilol 6.25 mg 05/24/19 09:00 05/24/19 08:19 Coreg PO 6.25 mg BID DESTINEE Administration Clopidogrel Bisulfate 75 mg 05/24/19 09:00 05/24/19 08:19 Plavix PO 75 mg DAILY DESTINEE Administration Coenzyme Q10 100 mg 05/24/19 09:00 05/24/19 08:19 Coenzyme Q10 PO 100 mg DAILY DESTINEE Administration Enoxaparin Sodium 40 mg 05/24/19 09:00 05/24/19 08:19 Lovenox SC 40 mg 0900 DESTINEE Administration Furosemide 40 mg 05/24/19 09:00 05/24/19 08:19 Lasix PO 40 mg DAILY DESTINEE Administration Amiodarone HCl 450 mg/ 259 mls @ 0 mls/hr 05/24/19 05:00 05/24/19 15:08 Miscellaneous Medication 1 IVPB 05/24/19 15:30 259 mls each/ Dextrose/Water INF DESTINEE Administration Protocol As Directed Insulin Human Lispro 0 units 05/24/19 06:14 05/24/19 06:32 Humalog SC 3 units .MILD SLIDING SCALE PRN Administration Mild Correctional Scale Multivitamins 1 tab 05/24/19 09:00 05/24/19 08:20 Theragran PO 1 tab DAILY DESTINEE Administration Potassium Chloride 40 meq 05/24/19 07:55 05/24/19 08:23 K-Dur PO 40 meq ASDIR PRN Administration FOR SERUM K+ 2.5 - 3.5 Sacubitril/Valsartan 1 tab 05/24/19 09:00 05/24/19 08:21 Entresto 24 Mg-26 Mg Tablet PO 1 tab BID DESTINEE Administration Sotalol HCl 40 mg 05/24/19 11:45 05/24/19 11:58 Betapace PO 05/24/19 16:00 40 mg NOW DESTINEE Administration - Exam General Appearance: NAD Heart: RRR, no murmur, no gallops, no rubs, normal peripheral pulses Respiratory: CTAB, no wheezes, no rales, no ronchi, normal chest expansion, no tachypnea, normal percussion Gastrointestinal: soft, non-tender, non-distended Extremities: no edema Musculoskeletal: normal tone Psychiatric: normal affect, normal behavior, A&O x 3 Hosp A/P (1) Ventricular tachycardia (paroxysmal) Code(s): I47.2 - VENTRICULAR TACHYCARDIA Status: Acute (2) AICD discharge Code(s): Z45.02 - ENCNTR FOR ADJUST AND MGMT OF AUTOMATIC IMPLNTBL CARD DEFIB Status: Acute (3) PVD (peripheral vascular disease) with claudication Code(s): I73.9 - PERIPHERAL VASCULAR DISEASE, UNSPECIFIED Status: Acute (4) CAD (coronary artery disease) Code(s): I25.10 - ATHSCL HEART DISEASE OF [place] CORONARY ARTERY W/O ANG PCTRS Status: Chronic Qualifiers: Coronary Disease-Associated Artery/Lesion type: bypass graft [place] vs. transplanted heart: [place] heart Associated angina: with unstable angina Qualified Code(s): I25.700 - Atherosclerosis of coronary artery bypass graft(s) , unspecified, with unstable angina pectoris (5) DM2 (diabetes mellitus, type 2) Status: Chronic Qualifiers: Diabetes mellitus chcf insulin use: without manager terminal use Diabetes mellitus complication detail: with peripheral angiopathy without gangrene (6) HLD (hyperlipidemia) Code(s): E78.5 - HYPERLIPIDEMIA, UNSPECIFIED Status: Chronic Qualifiers: Hyperlipidemia type: unspecified Qualified Code(s): E78.5 - Hyperlipidemia , unspecified (7) HTN (hypertension) Code(s): I10 - ESSENTIAL (PRIMARY) HYPERTENSION Status: Chronic Qualifiers: Hypertension type: essential hypertension Qualified Code(s): I10 - Essential (primary) hypertension (8) Hypothyroidism Code(s): E03.9 - HYPOTHYROIDISM, UNSPECIFIED Status: Chronic Qualifiers: Hypothyroidism type: acquired Qualified Code(s): E03.9 - Hypothyroidism, unspecified (9) Elevated troponin Code(s): R79.89 - OTHER SPECIFIED ABNORMAL FINDINGS OF BLOOD CHEMISTRY Status : Acute - Plan Discussed with Cards Amiodarone gtt. Keep at 1 mg/hr. Increased Sotalol to 120 mg po bid. Cards working on T to [place] to the EP. Troponin slightly elevated due to AICD discharge and not due to OK of any kind. Blood sugars well controlled.
--- NOTE | 2019-05-24 18:05 | CON ---
DATE OF CONSULTATION: 05/24/2019 HISTORY OF PRESENT ILLNESS: Bakari Moreau is a 68-year-old male, who has defibrillator. Apparently, his defibrillator fired as an outpatient, and he was seen by Dr. Whitfield last week. He was scheduled for some sort of ablation procedure at the end of the month in [place]. He had 5 more discharges at home and 2 in the emergency department here yesterday and last night and subsequently has been admitted to the hospital. PAST MEDICAL HISTORY: Remarkable for: 1. CAD with bypass surgery in the past. 2. Status post coronary artery stenting. 3. Peripheral vascular disease. 4. Diabetes. 5. Hypothyroidism. 6. Bilateral iliac stents. 7. History of cholecystectomy. 8. History of coronary artery bypass grafting in 1986 and 2010, with coronary artery stent placed in 2012. 9. Defibrillator placement. 10. Cataract surgery. MEDICATIONS: Medications have been reviewed. There were 14 of them prior to admission. SOCIAL HISTORY: He is a nonsmoker and nondrinker. ALLERGIES: REPORTS ALLERGIES TO PENICILLIN. FAMILY HISTORY: Negative for lung disease in early age. REVIEW OF SYSTEMS: 10 point review of systems completed, otherwise negative. PHYSICAL EXAMINATION: GENERAL: He is in no distress. When I saw him, he is very pleasant and cooperative. VITAL SIGNS: Afebrile, heart rate 74, blood pressure 109/71. He is on amiodarone drip. HEENT: Pupils are equal. Sclerae are anicteric. He has fair dentition. NECK: Supple. LUNGS: Clear. HEART: Regular rhythm. S1 and S2 are normal. ABDOMEN: Soft and nontender. EXTREMITIES: Without clubbing, cyanosis, or edema. LABORATORY DATA: White count 9.2, hemoglobin 14.1, platelets 152. Sodium 137, potassium 3.3, chloride 98, bicarb 22, BUN 14, creatinine 1.1. IMPRESSION: Status post multiple defibrillator firings. It is my understanding that the EP lab is not functional at this point in time. His potassium is being corrected. He will continue with IV amiodarone. Transfer to [place] for further electrophysiology treatment should be considered. Job ID: [id number] MTDD
[2019-05-24] MEDS: metFORMIN 500 MG TAB PO SCH (18:40)
[2019-05-24] MEDS: Sotalol HCl 80 MG TAB PO SCH (20:38)
[2019-05-24] MEDS ORDERED: Rosuvastatin 20 MG TAB PO SCH (21:00)
[2019-05-24] MEDS ORDERED: Prevnar 13-Val Conj/PF 0.5 ML SYRINGE IM ONE (21:00)
[2019-05-25 05:10] LABS: Band 10 % (5-11); Eosinophils 3 % (0-10); Hemoglobin 13.4 g/dL (14.0-18.0); Lymphocytes 11 % (21-51); MDiff Complete? YES; Mean Corpuscular HGB CONC 34.9 g/dL (32.0-36.0); Mean Corpuscular Hemoglobin 33.2 pg (27.0-31.0); Mean Corpuscular Volume 95.1 fL (78.0-98.0); Mean Platelet Volume 8.5 fL (7.4-10.4); Monocytes 9 % (0-10); Neutrophil 67 % (42-75); Platelet Count 133 thou/uL (130-400); Platelet Morphology Comment Appears Adequate; RBC Distribution Width 12.7 % (11.5-14.5); Red Blood Cell (RBC) Count 4.03 mill/uL (4.70-6.10); White Blood Cell (WBC) Count 8.6 thou/uL (4.8-10.8)
[2019-05-25 05:12] LABS: Anion Gap 14 mmol/L (10-20); BUN (Urea Nitrogen) 12 mg/dL (8.4-25.7); Calc. Creatinine Clearance 111 mL/min (70-130); Calcium 8.4 mg/dL (7.8-10.44); Carbon Dioxide 21 mmol/L (23-31); Chloride 105 mmol/L (98-107); Estimated GFR-MDRD 86; Glucose 167 mg/dL (80-115); Potassium 4.3 mmol/L (3.5-5.1); Sodium 136 mmol/L (136-145)
[2019-05-25] MEDS ORDERED: Levothyroxine Sodium 125 MCG TAB PO SCH (06:00)
[2019-05-25] MEDS: Amiodarone 450 MG, Admixture Fee 1 EACH in Dextrose 5% in Water 250 ML IVPB SCH (07:22)
[2019-05-25] MEDS ORDERED: Glimepiride 4 MG TAB PO SCH (07:30)
[2019-05-25] MEDS: metFORMIN 500 MG TAB PO SCH (07:32)
--- NOTE | 2019-05-25 08:02 | HP ---
PRIMARY CARE PHYSICIAN: Dr. Eliazar Sol. CHIEF COMPLAINT: My AICD is firing. HISTORY OF PRESENT ILLNESS: This is a 68-year-old male patient with past medical history of hypothyroidism, CAD, hypertension, high cholesterol, diabetes type 2, arrhythmia, status post AICD and pacemaker. The patient came to the hospital after having an episode of his AICD firing. The episode occurred around 11:30 and had multiple episodes on his way to the hospital totally around 7. Symptoms were severe with no clear triggers, no alleviating factors, started suddenly. The patient was started on amiodarone drip. We will consult Dr. Zamudio for any further recommendation. The patient has reported that he was seeing Dr. Whitfield this week and they were planning to send him for an appointment for ablation. The patient also reported diaphoresis and lightheadedness. REVIEW OF SYSTEMS: CONSTITUTIONAL: No fever, or chills. The patient has generalized weakness. RESPIRATORY: No cough, sputum production, or shortness of breath. CARDIOVASCULAR: The patient has AICD firing. No chest pain or palpitations. GASTROINTESTINAL: The patient had nausea. No vomiting, diarrhea, or abdominal pain. BELLPERSON: No dizziness, headache, or feeling lightheaded. GENITOURINARY: No burning on urination. EXTREMITIES: Bilateral leg swelling, 1+ edema. All other systems were reviewed and negative except for the findings mentioned above. PAST MEDICAL HISTORY: As mentioned in HPI. FAMILY HISTORY: Reviewed, noncontributory for current presentation. PAST SURGICAL HISTORY: CABG, cardiac stents, cholecystectomy, AICD, and pacemaker. PSYCHIATRIC HISTORY: No previous psychiatric history. SOCIAL HISTORY: The patient drinks everyday less than 5 drinks per day. No drug use. Former cigarette user. Quit smoking more than 10 years ago. KNOWN ALLERGIES: The patient is allergic to penicillin. REPORTED MEDICATIONS: 1. Plavix. 2. Coreg. 3. Aspirin. 4. Lasix. 5. Januvia. 6. Metformin. 7. Crestor. 8. Coenzyme Q10. 9. Multivitamin. 10. Glimepiride. 11. Sotalol. PHYSICAL EXAMINATION: VITAL SIGNS: On presentation, blood pressure 120/75, heart rate 92, respiratory rate was 20, temperature 98, oxygen saturation was 95% on 4 L oxygen. GENERAL APPEARANCE: The patient is alert, oriented, in no acute distress. HEENT: Eyes, normal conjunctivae. Moist oral mucosa. Anicteric. No JVD. RESPIRATORY: Bilateral air entry. No rales. No wheezes. Symmetric expansion. CARDIOVASCULAR: Normal rate, regular rhythm. No murmurs. No gallop. No edema. in the monitor, the patient has runs of V-tachs, but has been nonsustained after amiodarone has been started. ABDOMEN: Soft, normal bowel sounds. MUSCULOSKELETAL: Baseline range of motion and strength. SKIN: Warm, intact. No pallor. No rash. No redness. Capillary refill seems to intact. NEUROLOGIC: No evidence of any new focal weakness. Cranial nerves seems to be intact. PSYCHIATRIC: The patient is in good mood. No anxiety. Optimal judgment. DIAGNOSTIC DATA: EKG showed heart rate of 167 with intermittent ventricular tachycardia. The repeated one showed atrial sensed, ventricular paced rhythm at the rate of 88 with AR 158, QRS duration 206, QT corrected 580. Chest x-ray showed profound cardiomegaly, mild pulmonary vascular congestion. LABORATORY DATA: Labs were reviewed. The patient has white count 9.2, hemoglobin 14.1, MCV 93.8 with platelet count 152. Chemistry; sodium 137, potassium 3.3, chloride 98, carbon dioxide 22, anion gap 20, BUN 14, creatinine 1.1, GFR 66, glucose 190, calcium 9.0, total bilirubin 0.3. LFTs were negative. Troponin 0.026. Beta natriuretic peptide 325. ASSESSMENT AND PLAN: The patient will be placed in the hospital with following medical problems: 1. Nonsustained ventricular tachycardia leading to the patient having AICD firing x7 since 11:30 p.m. The patient has been started on amiodarone. Telemetry strips showing some episodes of nonsustained ventricular tachycardia; however, in better control now. The patient is symptomatic as of now. We will consult Cardiology. Continue amiodarone. We will start home medications. We will adjust treatment as needed. 2. Uncontrolled diabetes with sugar of 190, reconcile home medications. The patient will adjust sliding scale for optimal control. 3. Hypokalemia. This is mild. Potassium 3.3. We will replace electrolytes as needed. 4. Possible congestive heart failure exacerbation. The patient had chest x-ray showing pulmonary congestion. We will reconcile home medications. We will monitor closely. 5. Controlled hypertension. Reconcile home medications, adjust treatment as needed. 6. High cholesterol. Low-cholesterol diet is advised. Reconcile home medications. 7. Hypothyroidism. Continue hormone replacement. 8. Deep venous thrombosis prophylaxis. Job ID: [id number] MISA
[2019-05-25] MEDS: Enoxaparin Sodium 40 MG/0.4 ML SYRINGE SC SCH (08:17)
[2019-05-25] MEDS: Clopidogrel Bisulfate 75 MG TAB PO SCH (08:18)
[2019-05-25] MEDS: Ubidecarenone 50 MG CAP PO SCH (08:18)
[2019-05-25] MEDS: Aspirin 325 MG TAB PO SCH (08:18)
[2019-05-25] MEDS: Carvedilol 6.25 MG TAB PO SCH (08:18)
[2019-05-25] MEDS: Multivit, Therapeutic 1 TAB PO SCH (08:19)
[2019-05-25] MEDS: Furosemide 40 MG TAB PO SCH (08:19)
[2019-05-25] MEDS ORDERED: Alogliptin 25 MG TAB PO SCH (09:00)
[2019-05-25] MEDS: Sotalol HCl 80 MG TAB PO SCH (09:19)
[2019-05-25 09:20] VITALS: BP 116/68
--- NOTE | 2019-05-25 09:25 | PRG ---
DATE OF SERVICE: 05/25/2019 SUBJECTIVE: This morning, he remains in the ICU, feeling weak, tired. He is on amiodarone drip for wide complex tachycardia. He is to see Dr. Whitfield today. Apparently, he has an AICD in place. OBJECTIVE: VITAL SIGNS: Otherwise, this morning, his pulse is 69, blood pressure is 120/84, respirations 24. CHEST: No wheezing or crackles. CARDIAC: Normal S1 and S2. No gallops. ASSESSMENT: 1. Multiple shocks from his automatic implantable cardioverter-defibrillator. 2. Morbid obesity, probably a sleep apnea. PLAN: Pulmonary follow in the ICU. Dr. Bryant seen him in the past, we will notify him. Probably would benefit from an outpatient sleep study. Job ID: [id number]
[2019-05-25 11:14] VITALS: TEMP 98.1
--- NOTE | 2019-05-25 15:50 | CON ---
DATE OF CONSULTATION: 05/25/2019 HISTORY OF PRESENT ILLNESS: I am seeing Mr. Moreau at our [facility] intensive care unit as an Electrophysiology strategic sourcing consultant. His problems are; 1. VT/electrical storm. a. History of VT suppressed with sotalol and ATP therapy and the recent ICD shock. b. Current good suppression with added IV amiodarone loading. 2. Chronic systolic congestive heart failure with ischemic cardiomyopathy. a. Prior history of microinfarction and repeated redo coronary artery bypass grafting surgery as well as PTCAs in the past. b. Reduced LVEF in the range of 20% to 25%. 3. History of a dual-chamber ICD implantation by Dr. Lee in the past. 4. Peripheral vascular disease, post left iliac vein graft and subsequent stenting. 5. Right iliac complete occlusion. 6. Right bundle-branch block and underlying left anterior fascicular block. 7. Hypothyroidism, on levothyroxine. 8. History of diabetes and dyslipidemia. ALLERGIES: PENICILLINS. MEDICATIONS: At home included, 1. Multivitamins. 2. Crestor. 3. Levothyroxine. 4. Aspirin. 5. Clopidogrel. 6. Coenzyme Q10. 7. . 8. Glimepiride. 9. Metformin. 10. Sitagliptin. 11. Sotalol 80 mg twice a day. 12. Sacubitril-valsartan/Entresto 24/26 mg twice a day. 13. Carvedilol 12.5 mg twice a day. SUBJECTIVE: Mr. Moreau has received multiple ICD shocks, total 7 by his count over the weekend. He was subsequently hospitalized. He was noted to have no acute coronary events. His electrolytes were stable. He was not in a heart failure exacerbation. Peak troponin was 0.23. BNP was 325. He was placed on IV amiodarone, and he has remained stable. No further ventricular tachycardia since. OBJECTIVE DATA: VITAL SIGNS: Blood pressure 112/65, heart rate 65, respirations 14, temp 98.1 degrees Fahrenheit. GENERAL: Alert and oriented man, in no apparent distress. NECK: Supple. Jugular veins not distended. CHEST: Coarse with crackles. HEART: Sounds are regular rate and rhythm. No murmur or gallop. The precordial ICD insertion site is well healed. ABDOMEN: Benign. Bowel sounds positive. EXTREMITIES: Lower extremities without edema, clubbing, or cyanosis. Pulses are adequate. NEUROLOGIC: The patient is nonfocal. MUSCULOSKELETAL: No joint swelling or deformity. SKIN: Without rash. Midsternal scar and ICD insertion site is well healed. IMAGING STUDIES: EKG is reviewed, reveals atrial paced rhythm, right bundle- branch block, but also an episode of ventricular tachycardia indeterminate bundle, but northwest axis in morphology. ICD interrogation was revealing a functioning [employer] V[employer] Quad [employer]-D device with battery longevity adequate, lead parameters are adequate. Total of 33 VT episodes were noted out of which 7 required ICD shock termination, rest of them ATP terminated. The chest x-ray on admission showed stable chest without evidence of acute cardiopulmonary process. Prior bypass graft changes are seen. LABORATORY DATA: Sodium 137, potassium 3.3, BUN 14, and creatinine 1.1. The AST and ALT are 21 and 25. Troponin I is 0.02, second is 0.127. BNP is 325. The white cell count is 8.6, hemoglobin 4.3, platelet count is 133. ASSESSMENT AND PLAN: Mr. Moreau is a 68-year-old man with history of congestive heart failure, ischemic cardiomyopathy, and prior redo bypass surgery and multiple angioplasties in the past, who has a Bi-V ICD in place, has recurrent ventricular tachycardia events, which previously were reasonably suppressed with sotalol and ATP therapies now, had recurrences despite continued sotalol and required IV amiodarone for suppression. Hence multiple ICD shocks were seen. At this point, I think the VT ablation, which we planned as outpatient already needs to be expedited. I agree with the transient IV amiodarone therapy. We will stop sotalol to avoid excessive QT prolongation. Continue stabilizing electrolytes. Keep potassium over 4. Not suspecting acute ischemic events as cause of the severe ventricular tachycardia. Ischemic evaluation maybe a consideration to assess his current coronary status. He likely would benefit from expedite transfer to [facility] for ventricular tachycardia ablation. Decision was discussed with the patient and his , Dr. Subramanian and Dr. Mercedes, the hospitalist. Thank you again for allowing me to participate in the care of this patient. Job ID: [id number] [facility]
== END 2019-05-25 14:29 | disposition critical access hospital (66) | DRG 309 ==
LOC: ERS 03:00 → CCU 04:51
PROVIDERS: ADMIT Hospitalist; ATTEND Hospitalist
DX: I47.2 Ventricular tachycardia (principal); I25.700 Atherosclerosis of coronary artery bypass graft(s), unspecified, with unstable angina pectoris; E87.6 Hypokalemia; E03.9 Hypothyroidism, unspecified; I73.9 Peripheral vascular disease, unspecified; E11.51 Type 2 diabetes mellitus with diabetic peripheral angiopathy without gangrene; E78.5 Hyperlipidemia, unspecified; I50.9 Heart failure, unspecified; R79.89 Other specified abnormal findings of blood chemistry; I25.5 Ischemic cardiomyopathy; I11.0 Hypertensive heart disease with heart failure; E66.01 Morbid (severe) obesity due to excess calories; G47.30 Sleep apnea, unspecified; Z95.810 Presence of automatic (implantable) cardiac defibrillator; Z95.1 Presence of aortocoronary bypass graft; Z90.49 Acquired absence of other specified parts of digestive tract; Z87.891 Personal history of nicotine dependence; Z88.0 Allergy status to penicillin; Z68.32 Body mass index [BMI] 32.0-32.9, adult
CPT/HCPCS: 36415; 36416; 71045; 80048; 80053; 82550; 83735; 83880; 84100; 84484; 85025; 90471; 90662; 93005; 96365; 96366; 96374; 96375; 96376; 99292; G0008; J0171; J0282; J1650; J3475; J7070

== ENCOUNTER 2024-05-08 13:56 | Outpatient (CLI) | payer MEDICARE ==
[2024-05-08 17:27] LABS: #Basophils 0.05 10x3/uL (0.0-0.2); %Basophils 0.4 % (0.0-1.0); %Eosinophils 2.7 % (0.0-10.0); %Lymphocytes 11.5 % (21.0-51.0); %Monocytes 6.2 % (0.0-10.0); %Neutrophils 78.8 % (42.0-75.0); Hematocrit 38.1 % (42.0-52.0); Hemoglobin 12.4 g/dL (14.0-18.0); Mean Corpuscular HGB CONC 32.5 g/dL (32.0-36.0); Mean Corpuscular Hemoglobin 30.9 pg (27.0-31.0); Mean Platelet Volume 9.8 fL (7.4-10.4); Platelet Count 212 10x3/uL (130-400); RBC Distribution Width 13.4 % (11.5-14.5); Red Blood Cell (RBC) Count 4.01 mill/uL (4.70-6.10)
[2024-05-08 17:40] LABS: INR-International Normal Ratio 1.1; Prothrombin Time 13.7 sec (12.0-14.7)
[2024-05-08 17:41] LABS: PTT 34.3 sec (22.9-36.1)
[2024-05-08 17:46] LABS: Anion Gap 18 mmol/L (10-20); BUN (Urea Nitrogen) 13 mg/dL (8.4-25.7); Calc. Creatinine Clearance 0 mL/min (70-130); Calcium 9.5 mg/dL (7.8-10.44); Carbon Dioxide 25 mmol/L (23-31); Chloride 104 mmol/L (98-107); Estimated GFR 72; Glucose 164 mg/dL (83-110); Potassium 4.4 mmol/L (3.5-5.1); Sodium 143 mmol/L (136-145)
== END 2024-05-08 13:57 | disposition home or self-care (01) ==
LOC: LABBT 13:56
PROVIDERS: ATTEND Internal Medicine Cardiovascular Disease
DX: Z01.812 Encounter for preprocedural laboratory examination (principal); I50.9 Heart failure, unspecified; I47.20 Ventricular tachycardia, unspecified
CPT/HCPCS: 80048; 85025; 85610; 85730

== ENCOUNTER 2024-05-08 15:40 | Emergency (ER) | payer MEDICARE ==
[2024-05-08 16:51] LABS: #Basophils 0.06 10x3/uL (0.0-0.2); %Basophils 0.5 % (0.0-1.0); %Eosinophils 2.7 % (0.0-10.0); %Lymphocytes 11.7 % (21.0-51.0); %Monocytes 6.2 % (0.0-10.0); %Neutrophils 78.4 % (42.0-75.0); Hematocrit 38.6 % (42.0-52.0); Hemoglobin 12.5 g/dL (14.0-18.0); Mean Corpuscular HGB CONC 32.4 g/dL (32.0-36.0); Mean Corpuscular Hemoglobin 30.9 pg (27.0-31.0); Mean Corpuscular Volume 95.3 fL (78.0-98.0); Mean Platelet Volume 9.6 fL (7.4-10.4); Platelet Count 202 10x3/uL (130-400); RBC Distribution Width 13.4 % (11.5-14.5); Red Blood Cell (RBC) Count 4.05 mill/uL (4.70-6.10)
[2024-05-08 17:06] LABS: Anion Gap 16 mmol/L (10-20); BUN (Urea Nitrogen) 14 mg/dL (8.4-25.7); Calc. Creatinine Clearance 0 mL/min (70-130); Carbon Dioxide 23 mmol/L (23-31); Chloride 104 mmol/L (98-107); Potassium 4.2 mmol/L (3.5-5.1); Sodium 139 mmol/L (136-145)
[2024-05-08 17:07] LABS: ALT (SGPT) 16 U/L (8-55); AST (SGOT) 13 U/L (5-34); Albumin 3.8 g/dL (3.4-4.8); Alkaline Phosphatase 53 U/L (40-110); Bilirubin, Total 0.6 mg/dL (0.2-1.2); Calcium 9.2 mg/dL (7.8-10.44); Estimated GFR 73; Globulin 3.8 g/dL (2.4-3.5); Glucose 158 mg/dL (83-110); Protein, Total 7.6 g/dL (5.8-8.1)
[2024-05-08] MEDS ORDERED: Doxycycline 100 MG CAP ONE (20:27)
[2024-05-08] MEDS ORDERED: Clindamycin/D5W 600 mg/50 ml Premix Bag ONE (20:27)
[2024-05-08] MEDS ORDERED: Boostrix 0.5 ML (Tdap) VIAL (>/=7 yrs of age) ONE (20:28)
[2024-05-08] MEDS ORDERED: Clindamycin 150 MG CAP ONE (20:54)
== END 2024-05-08 21:34 | disposition home or self-care (01) ==
LOC: ERS 15:40
DX: S51.852A Open bite of left forearm, initial encounter (principal); L03.114 Cellulitis of left upper limb; I11.0 Hypertensive heart disease with heart failure; I50.9 Heart failure, unspecified; I25.10 Atherosclerotic heart disease of native coronary artery without angina pectoris; E11.9 Type 2 diabetes mellitus without complications; W54.0XXA Bitten by dog, initial encounter; Z23 Encounter for immunization; Z87.891 Personal history of nicotine dependence; Z95.5 Presence of coronary angioplasty implant and graft; Z01.812 Encounter for preprocedural laboratory examination; I47.20 Ventricular tachycardia, unspecified
CPT/HCPCS: 36415; 80048; 85025; 85610; 85730; 90471; 90715; J3490

== ENCOUNTER 2024-06-16 13:34 | Outpatient (CLI) | payer MEDICARE ==
[2024-06-16 14:44] LABS: #Basophils 0.05 10x3/uL (0.0-0.2); %Basophils 0.7 % (0.0-1.0); %Eosinophils 6.4 % (0.0-10.0); %Lymphocytes 20.1 % (21.0-51.0); %Monocytes 7.7 % (0.0-10.0); %Neutrophils 64.8 % (42.0-75.0); Hematocrit 42.3 % (42.0-52.0); Hemoglobin 13.6 g/dL (14.0-18.0); Mean Corpuscular HGB CONC 32.2 g/dL (32.0-36.0); Mean Corpuscular Hemoglobin 30.8 pg (27.0-31.0); Mean Corpuscular Volume 95.7 fL (78.0-98.0); Mean Platelet Volume 9.8 fL (7.4-10.4); Platelet Count 174 10x3/uL (130-400); RBC Distribution Width 13.9 % (11.5-14.5); Red Blood Cell (RBC) Count 4.42 mill/uL (4.70-6.10)
[2024-06-16 15:03] LABS: Anion Gap 13 mmol/L (10-20); BUN (Urea Nitrogen) 17 mg/dL (8.4-25.7); Calc. Creatinine Clearance 0 mL/min (70-130); Calcium 9.1 mg/dL (7.8-10.44); Carbon Dioxide 25 mmol/L (23-31); Chloride 104 mmol/L (98-107); Estimated GFR 73; Glucose 279 mg/dL (83-110); Potassium 4.5 mmol/L (3.5-5.1); Sodium 137 mmol/L (136-145)
[2024-06-16 15:08] LABS: INR-International Normal Ratio 1.1; PTT 27.9 sec (22.9-36.1); Prothrombin Time 14.3 sec (12.0-14.7)
== END 2024-06-16 13:35 | disposition home or self-care (01) ==
LOC: LABBT 13:34
PROVIDERS: ATTEND Internal Medicine Cardiovascular Disease
DX: Z01.812 Encounter for preprocedural laboratory examination (principal); I50.22 Chronic systolic (congestive) heart failure
CPT/HCPCS: 80048; 85025; 85610; 85730

== ENCOUNTER 2024-06-19 06:28 | Day surgery (SDC) | payer MEDICARE ==
[2024-06-16 13:55] VITALS: BMI 32.3
[2024-06-19] MEDS ORDERED: Clindamycin/D5W 900 mg/50 ml Premix Bag ONE (08:15)
[2024-06-19] MEDS ORDERED: Gentamicin 80 MG/2 ML VIAL ONE (08:15)
[2024-06-19] MEDS ORDERED: Dexamethasone 20 MG/5 ML VIAL ONE (09:40)
[2024-06-19] MEDS ORDERED: Ketorolac Tromethamine 30 MG (1 mL) VIAL ONE (09:40)
[2024-06-19] MEDS ORDERED: Ondansetron PF 4 MG/2 ML Vial ONE (09:40)
[2024-06-19] MEDS ORDERED: Lidocaine 1% PF 5 ML VIAL ONE (09:40)
[2024-06-19] MEDS ORDERED: PROPOFOL 200 MG/20 ML VIAL ONE (09:40)
[2024-06-19] MEDS ORDERED: PHENYLEPHRINE-NS 100 MCG/ML 10 ML SYRINGE ONE (09:40)
[2024-06-19] MEDS ORDERED: fentaNYL 50 mcg/mL 1 mL Vial ONE (09:44)
== END 2024-06-19 11:47 | disposition home or self-care (01) ==
LOC: SDC 06:28
PROVIDERS: ATTEND Internal Medicine Cardiovascular Disease
PROC: 02PA3MZ Removal of Cardiac Lead from Heart, Percutaneous Approach (ICD-10-PCS; principal; 2024-06-19)
PROC: 02H63KZ Insertion of Defibrillator Lead into Right Atrium, Percutaneous Approach (ICD-10-PCS; 2024-06-19)
PROC: 02HK3KZ Insertion of Defibrillator Lead into Right Ventricle, Percutaneous Approach (ICD-10-PCS; 2024-06-19)
DX: I47.20 Ventricular tachycardia, unspecified (principal); I11.0 Hypertensive heart disease with heart failure; I50.22 Chronic systolic (congestive) heart failure; E78.5 Hyperlipidemia, unspecified; E03.9 Hypothyroidism, unspecified; E78.00 Pure hypercholesterolemia, unspecified; I25.2 Old myocardial infarction; I25.5 Ischemic cardiomyopathy; I45.10 Unspecified right bundle-branch block; I25.10 Atherosclerotic heart disease of native coronary artery without angina pectoris; Z95.810 Presence of automatic (implantable) cardiac defibrillator; Z86.79 Personal history of other diseases of the circulatory system; Z98.890 Other specified postprocedural states; Z79.899 Other long term (current) drug therapy; Z79.01 Long term (current) use of anticoagulants; Z87.891 Personal history of nicotine dependence; Z88.0 Allergy status to penicillin
CPT/HCPCS: 33264; 82962; 93641; C1882; J1580; J3010; J3490; 33263; 36416; J1100; J1885; J2405; J2704

== ENCOUNTER 2024-08-05 08:47 | Inpatient (IN) | payer MEDICARE ==
[2024-08-05 10:30] LABS: #Basophils 0.06 10x3/uL (0.0-0.2); %Basophils 0.3 % (0.0-1.0); %Eosinophils 0.2 % (0.0-10.0); %Lymphocytes 6.1 % (21.0-51.0); %Monocytes 8.4 % (0.0-10.0); %Neutrophils 84.1 % (42.0-75.0); Hematocrit 38.7 % (42.0-52.0); Hemoglobin 13.3 g/dL (14.0-18.0); Mean Corpuscular HGB CONC 34.4 g/dL (32.0-36.0); Mean Corpuscular Hemoglobin 30.4 pg (27.0-31.0); Mean Corpuscular Volume 88.6 fL (78.0-98.0); Mean Platelet Volume 9.9 fL (7.4-10.4); Platelet Count 261 10x3/uL (130-400); RBC Distribution Width 14.5 % (11.5-14.5); Red Blood Cell (RBC) Count 4.37 mill/uL (4.70-6.10)
[2024-08-05] MEDS ORDERED: Acetaminophen 325 MG TAB PO PRN (10:53)
[2024-08-05] MEDS ORDERED: Glucagon 1 MG/ML KIT IM PRN (10:59)
[2024-08-05] MEDS ORDERED: Dextrose 50% Abboject 50 ML SYRINGE SLOW IVP PRN (10:59)
[2024-08-05] MEDS ORDERED: Insulin Lispro 100 UNIT/ML 10 ML VIAL SC PRN (10:59)
[2024-08-05] MEDS ORDERED: Dextrose 5% in Water 1,000 ML IV PRN (10:59)
[2024-08-05] MEDS ORDERED: Vancomycin 1 GM/200 ML (FROZEN) BAG ONE (11:09)
[2024-08-05] MEDS ORDERED: Vancomycin 1 GM in Premix 1 BAG IVPB SCH ×2 (11:11→21:00)
[2024-08-05 11:15] LABS: ALT (SGPT) 18 U/L (8-55); AST (SGOT) 20 U/L (5-34); Albumin 2.6 g/dL (3.4-4.8); Alkaline Phosphatase 49 U/L (40-110); Anion Gap 25 mmol/L (10-20); BUN (Urea Nitrogen) 52 mg/dL (8.4-25.7); Bilirubin, Total 0.3 mg/dL (0.2-1.2); Calc. Creatinine Clearance 22 mL/min (70-130); Calcium 7.9 mg/dL (7.8-10.44); Carbon Dioxide 9 mmol/L (23-31); Chloride 103 mmol/L (98-107); Estimated GFR 14; Globulin 2.7 g/dL (2.4-3.5); Glucose 184 mg/dL (83-110); Potassium 2.9 mmol/L (3.5-5.1); Protein, Total 5.3 g/dL (5.8-8.1); Sodium 134 mmol/L (136-145)
[2024-08-05] MEDS ORDERED: VANCOMYCIN IVPB PRN (11:20)
[2024-08-05] MEDS ORDERED: Vancomycin Dose by Levels Sliding Scale (Wt > 99) FS SCH (11:30)
[2024-08-05] MEDS ORDERED: NOREPINEPHRINE 8 MG/250 ML-D5W 250 ML ONE ×2 (11:53→17:27)
[2024-08-05] MEDS: Vancomycin (BATCH) 2 GM in Premix 1 BAG IVPB SCH (12:22)
[2024-08-05] MEDS ORDERED: Sodium Bicarb 50 MEQ/50 ML Abboject 8.4% SYRINGE ONE (12:24)
[2024-08-05] MEDS: Sodium Bicarb 50 mEq/50 ML VIAL IVP SCH (12:27)
[2024-08-05] MEDS: Lactated Ringer's 1,000 ML IV SCH ×2 (12:28→19:08)
[2024-08-05] MEDS ORDERED: Heparin 25,000 units/D5W 500 ML IVPB SCH (12:30)
[2024-08-05] MEDS ORDERED: Heparin 10,000 UNITS/ 10 ML VIAL SLOW IVP SCH (12:30)
[2024-08-05 18:36] LABS: Hematocrit 38.6 % (42.0-52.0); Hemoglobin 13.5 g/dL (14.0-18.0); Platelet Count 311 10x3/uL (130-400)
[2024-08-05] MEDS: Potassium Chloride 10 MEQ TAB PO SCH (18:45)
[2024-08-05] MEDS: Lactated Ringer's 500 ML IV SCH (19:00)
[2024-08-05 19:47] LABS: Anion Gap 25 mmol/L (10-20); BUN (Urea Nitrogen) 54 mg/dL (8.4-25.7); Calc. Creatinine Clearance 22 mL/min (70-130); Calcium 7.4 mg/dL (7.8-10.44); Carbon Dioxide 11 mmol/L (23-31); Chloride 100 mmol/L (98-107); Estimated GFR 14; Glucose 328 mg/dL (83-110); Potassium 2.4 mmol/L (3.5-5.1); Sodium 134 mmol/L (136-145)
[2024-08-05] MEDS ORDERED: Potassium Chloride 40 MEQ in Premix 1 BAG IVPB SCH (20:30)
[2024-08-05 20:39] LABS: Magnesium 2.2 mg/dL (1.6-2.6)
[2024-08-05] MEDS: Potassium Chloride 20 MEQ in Premix 1 BAG IVPB SCH (20:50)
[2024-08-05 21:58] LABS: Actual Bicarbonate (HCO3v) 12.2 mEq/L (22-28); Base Excess -13.5 mEq/L (-2.0 to +3.0); Calcium, Ionized (venous) 1.09 mmol/L (1.16-1.32); Chloride (VBG) 98 mmol/L (98-106); Hematocrit-VBG 44 % (42.0-52.0); Hemoglobin (Hb) 14.8 g/dL (12.6-17.4); Potassium (VBG) 2.82 mmol/L (3.70-5.30); Sodium 133 mmol/L (133-146); pH (venous) 7.244 (7.32-7.43)
[2024-08-05] MEDS ORDERED: Sodium Bicarbonate 150 MEQ in Dextrose 5% in Water 1,000 ML IV SCH (22:00)
[2024-08-05] MEDS: Insulin Lispro 100 UNIT/ML 10 ML VIAL SC PRN (22:36)
[2024-08-05] MEDS: Cefepime 1 GM in Sodium Chloride 0.9% 100 ML IVPB SCH (22:37)
[2024-08-05] MEDS: Albumin 25% 25 GM (100 mL) BOT IVPB SCH (22:37)
[2024-08-05] MEDS: Sodium Bicarbonate 150 MEQ in Sterile Water 1,000 ML IV SCH (22:59)
[2024-08-05] MEDS: Potassium Bicarbonate/Cit Ac 20 MEQ TAB PO SCH (23:06)
[2024-08-05] MEDS: Vancomycin HCl 125 MG Capsule PO SCH (23:12)
[2024-08-05 23:16] LABS: Anion Gap 25 mmol/L (10-20); BUN (Urea Nitrogen) 54 mg/dL (8.4-25.7); Calc. Creatinine Clearance 22 mL/min (70-130); Calcium 7.7 mg/dL (7.8-10.44); Carbon Dioxide 12 mmol/L (23-31); Chloride 101 mmol/L (98-107); Estimated GFR 14; Glucose 249 mg/dL (83-110); Potassium 2.8 mmol/L (3.5-5.1); Sodium 135 mmol/L (136-145)
[2024-08-06] MEDS: NOREPINEPHRINE 8 MG/250 ML-D5W 250 ML IVPB SCH (00:24)
[2024-08-06] MEDS: Potassium Chloride 20 MEQ in Premix 1 BAG IVPB SCH ×2 (01:52→06:41)
[2024-08-06 02:02] LABS: Influenza A by NAA Not Detected (NotDetected); Influenza B by NAA Not Detected (NotDetected); SARS-CoV-2 NAA Rapid Test Not Detected (NotDetected)
[2024-08-06 02:49] LABS: Sodium, Urine Less than 20 mmol/L (Not Available); Urea Nitrogen, Random Urine 297 mg/dl
[2024-08-06 03:00] LABS: Bilirubin Negative (Negative); Blood, Urine Trace (Negative); CAUTI Indications for Culture Alt mental st,lethar; Clarity Turbid (Clear); Glucose, Urine (Dipstick) Greater than 1000 mg/dL (Negative); Ketone, Urine 10 mg/dL (Negative); Leukocyte Negative Leu/uL (Negative); Nitrite Negative (Negative); Protein, Urine (Dipstick) 30 mg/dL (Neg-Trace); RBC/HPF 0-3 HPF (0-3); Specific Gravity, Urine 1.013 (1.002-1.036); Squamous Epithelial 0-3 HPF (0-3); Urobilinogen Normal mg/dL (Less than 2)
[2024-08-06 03:03] LABS: Bacteria/HPF 1+ HPF (None Seen); Urine Culture Reflex Yes Yes
[2024-08-06 05:04] LABS: #Basophils 0.08 10x3/uL (0.0-0.2); %Basophils 0.3 % (0.0-1.0); %Eosinophils 1.6 % (0.0-10.0); %Lymphocytes 8.9 % (21.0-51.0); %Monocytes 9.3 % (0.0-10.0); Hematocrit 36.4 % (42.0-52.0); Mean Corpuscular HGB CONC 35.7 g/dL (32.0-36.0); Mean Corpuscular Hemoglobin 29.9 pg (27.0-31.0); Mean Corpuscular Volume 83.7 fL (78.0-98.0); Mean Platelet Volume 10.2 fL (7.4-10.4); Platelet Count 308 10x3/uL (130-400); RBC Distribution Width 14.1 % (11.5-14.5); Red Blood Cell (RBC) Count 4.35 mill/uL (4.70-6.10)
[2024-08-06 05:31] LABS: ALT (SGPT) 16 U/L (8-55); AST (SGOT) 18 U/L (5-34); Albumin 3.5 g/dL (3.4-4.8); Alkaline Phosphatase 43 U/L (40-110); Anion Gap 23 mmol/L (10-20); BUN (Urea Nitrogen) 52 mg/dL (8.4-25.7); Bilirubin, Total 0.4 mg/dL (0.2-1.2); Calc. Creatinine Clearance 24 mL/min (70-130); Calcium 7.8 mg/dL (7.8-10.44); Carbon Dioxide 14 mmol/L (23-31); Chloride 100 mmol/L (98-107); Estimated GFR 15; Globulin 2.2 g/dL (2.4-3.5); Glucose 246 mg/dL (83-110); Magnesium 2.1 mg/dL (1.6-2.6); Potassium 3.2 mmol/L (3.5-5.1); Protein, Total 5.7 g/dL (5.8-8.1); Sodium 134 mmol/L (136-145)
[2024-08-06 06:24] VITALS: BMI 31.2
[2024-08-06] MEDS: Pantoprazole 40 MG VIAL IVP SCH (09:32)
[2024-08-06] MEDS: Sodium Chloride 0.9% 1,000 ML IV SCH (09:38)
[2024-08-06] MEDS: metroNIDAZOLE 500 MG in Premix 1 BAG IVPB SCH (13:01)
[2024-08-06 14:02] LABS: Anion Gap 21 mmol/L (10-20); BUN (Urea Nitrogen) 48 mg/dL (8.4-25.7); Calc. Creatinine Clearance 28 mL/min (70-130); Calcium 7.4 mg/dL (7.8-10.44); Carbon Dioxide 14 mmol/L (23-31); Chloride 103 mmol/L (98-107); Estimated GFR 20; Glucose 218 mg/dL (83-110); Potassium 2.9 mmol/L (3.5-5.1); Sodium 135 mmol/L (136-145)
[2024-08-06] MEDS: Sodium Bicarbonate 150 MEQ in Sterile Water 1,000 ML IV SCH (14:51)
[2024-08-06] MEDS: Potassium Chloride 20 MEQ TAB PO SCH (15:15)
[2024-08-06] MEDS: Potassium Chloride 40 MEQ in Premix 1 BAG IVPB SCH (16:01)
[2024-08-06] MEDS ORDERED: Lactated Ringer's 500 ML IV SCH (23:45)
[2024-08-06] MEDS: Lactated Ringer's 500 ML IV SCH (23:52)
[2024-08-07] MEDS: Lactated Ringer's 500 ML IV SCH (01:08)
[2024-08-07 04:54] LABS: %Basophils 0.6 % (0.0-1.0); %Eosinophils 4.6 % (0.0-10.0); %Lymphocytes 10.9 % (21.0-51.0); %Monocytes 9.4 % (0.0-10.0); %Neutrophils 73.9 % (42.0-75.0); Hematocrit 37.5 % (42.0-52.0); Hemoglobin 13.4 g/dL (14.0-18.0); Mean Corpuscular HGB CONC 35.7 g/dL (32.0-36.0); Mean Corpuscular Volume 84.1 fL (78.0-98.0); Mean Platelet Volume 9.9 fL (7.4-10.4); Platelet Count 290 10x3/uL (130-400); RBC Distribution Width 14.2 % (11.5-14.5); Red Blood Cell (RBC) Count 4.46 mill/uL (4.70-6.10)
[2024-08-07 05:12] LABS: Anion Gap 23 mmol/L (10-20); BUN (Urea Nitrogen) 35 mg/dL (8.4-25.7); Calc. Creatinine Clearance 32 mL/min (70-130); Calcium 7.6 mg/dL (7.8-10.44); Carbon Dioxide 16 mmol/L (23-31); Chloride 102 mmol/L (98-107); Estimated GFR 23; Glucose 210 mg/dL (83-110); Potassium 2.7 mmol/L (3.5-5.1); Sodium 138 mmol/L (136-145)
[2024-08-07 05:14] LABS: Magnesium 1.9 mg/dL (1.6-2.6)
[2024-08-07] MEDS: Magnesium 2 GM/50 ML(in water) 2 GM in Premix 1 BAG IVPB SCH (05:57)
[2024-08-07] MEDS: Potassium Chloride 20 MEQ in Premix 1 BAG IVPB SCH ×2 (05:57→19:47)
[2024-08-07] MEDS: Famotidine/PF 20 mg/2ml Vial SLOW IVP SCH (11:00)
[2024-08-07] MEDS: Sodium Chloride 0.9% 1,000 ML IV SCH ×2 (11:15→13:26)
[2024-08-07] MEDS ORDERED: Dextrose 5% in Water 1,000 ML IV PRN (11:20)
[2024-08-07] MEDS ORDERED: Dextrose 50% Abboject 50 ML SYRINGE SLOW IVP PRN (11:20)
[2024-08-07] MEDS ORDERED: Insulin Regular, Human 100 UNIT/ML 10 ML VIAL SC PRN ×2 (11:20)
[2024-08-07] MEDS ORDERED: Glucagon 1 MG/ML KIT IM PRN (11:20)
[2024-08-07 12:10] LABS: Hematocrit 36.7 % (42.0-52.0); Hemoglobin 13.2 g/dL (14.0-18.0); Platelet Count 222 10x3/uL (130-400)
[2024-08-07] MEDS: Sodium Bicarbonate 150 MEQ in Sterile Water 1,000 ML IV SCH (13:24)
[2024-08-07] MEDS: Insulin Lispro 100 UNIT/ML 10 ML VIAL SC PRN (13:30)
[2024-08-07 18:02] LABS: Potassium 3.1 mmol/L (3.5-5.1)
[2024-08-08 04:48] LABS: #Basophils 0.06 10x3/uL (0.0-0.2); %Basophils 0.6 % (0.0-1.0); %Eosinophils 6.7 % (0.0-10.0); %Lymphocytes 13.2 % (21.0-51.0); %Monocytes 9.6 % (0.0-10.0); %Neutrophils 69.3 % (42.0-75.0); Hematocrit 34.7 % (42.0-52.0); Hemoglobin 12.1 g/dL (14.0-18.0); Mean Corpuscular HGB CONC 34.9 g/dL (32.0-36.0); Mean Corpuscular Hemoglobin 29.9 pg (27.0-31.0); Mean Corpuscular Volume 85.7 fL (78.0-98.0); Platelet Count 235 10x3/uL (130-400); RBC Distribution Width 14.5 % (11.5-14.5); Red Blood Cell (RBC) Count 4.05 mill/uL (4.70-6.10)
[2024-08-08 05:18] LABS: Anion Gap 19 mmol/L (10-20); BUN (Urea Nitrogen) 26 mg/dL (8.4-25.7); Calc. Creatinine Clearance 58 mL/min (70-130); Calcium 7.3 mg/dL (7.8-10.44); Carbon Dioxide 22 mmol/L (23-31); Chloride 102 mmol/L (98-107); Estimated GFR 46; Glucose 120 mg/dL (83-110); Sodium 140 mmol/L (136-145)
[2024-08-08] MEDS: Levothyroxine Sodium 100 MCG TAB PO SCH (05:51)
[2024-08-08] MEDS: Folic Acid 1 MG TAB PO SCH (08:52)
[2024-08-08] MEDS: CO Q-10 CAPSULE 100 MG PO SCH (08:52)
[2024-08-08] MEDS: Famotidine/PF 20 mg/2ml Vial SLOW IVP SCH (08:53)
[2024-08-08] MEDS: Multivitamin W/ Minerals 1 TAB PO SCH (08:53)
[2024-08-08] MEDS: Potassium Chloride 20 MEQ TAB PO SCH (08:53)
[2024-08-08] MEDS: Cyanocobalamin (Vitamin B-12) 1,000 MCG TAB PO SCH (08:53)
[2024-08-08] MEDS: Rosuvastatin 20 MG TAB PO SCH (08:53)
[2024-08-08] MEDS: Lactated Ringer's 1,000 ML IV SCH (09:30)
[2024-08-09 04:11] LABS: #Basophils 0.05 10x3/uL (0.0-0.2); %Basophils 0.4 % (0.0-1.0); %Eosinophils 7.1 % (0.0-10.0); %Lymphocytes 13.5 % (21.0-51.0); %Monocytes 10.8 % (0.0-10.0); %Neutrophils 67.3 % (42.0-75.0); Hematocrit 37.1 % (42.0-52.0); Hemoglobin 12.9 g/dL (14.0-18.0); Mean Corpuscular HGB CONC 34.8 g/dL (32.0-36.0); Mean Corpuscular Hemoglobin 30.2 pg (27.0-31.0); Mean Corpuscular Volume 86.9 fL (78.0-98.0); Mean Platelet Volume 9.6 fL (7.4-10.4); Platelet Count 234 10x3/uL (130-400); RBC Distribution Width 14.8 % (11.5-14.5); Red Blood Cell (RBC) Count 4.27 mill/uL (4.70-6.10)
[2024-08-09 04:23] LABS: Anion Gap 17 mmol/L (10-20); BUN (Urea Nitrogen) 19 mg/dL (8.4-25.7); Calc. Creatinine Clearance 70 mL/min (70-130); Calcium 7.6 mg/dL (7.8-10.44); Carbon Dioxide 21 mmol/L (23-31); Chloride 104 mmol/L (98-107); Estimated GFR 59; Glucose 143 mg/dL (83-110); Sodium 139 mmol/L (136-145)
[2024-08-09] MEDS: Potassium Bicarbonate/Cit Ac 20 MEQ TAB PO SCH (06:03)
[2024-08-09] MEDS ORDERED: FLU (Fluad Triv) TS24-25 (65UP)/MF59C/PF 45 MCG/0.5 ML Syringe IM ONE (09:00)
[2024-08-09 12:09] LABS: Hematocrit 42.5 % (42.0-52.0); Hemoglobin 14.5 g/dL (14.0-18.0); Platelet Count 264 10x3/uL (130-400)
[2024-08-09 13:04] VITALS: TEMP 97.1
[2024-08-09 15:50] VITALS: BP 122/62
== END 2024-08-09 18:01 | disposition home or self-care (01) | DRG 871 ==
LOC: SDC 08:47 → CCU 21:16 → 2NO 08-08 09:11
PROVIDERS: ADMIT Internal Medicine Cardiovascular Disease; ATTEND Family Medicine
PROC: 3E03329 Introduction of Other Anti-infective into Peripheral Vein, Percutaneous Approach (ICD-10-PCS; principal; 2024-08-05)
PROC: 3E033XZ Introduction of Vasopressor into Peripheral Vein, Percutaneous Approach (ICD-10-PCS; 2024-08-05)
PROC: 30233J1 Transfusion of Nonautologous Serum Albumin into Peripheral Vein, Percutaneous Approach (ICD-10-PCS; 2024-08-05)
DX: A41.9 Sepsis, unspecified organism (principal); R57.1 Hypovolemic shock; R65.21 Severe sepsis with septic shock; A04.72 Enterocolitis due to Clostridium difficile, not specified as recurrent; E87.20 Acidosis, unspecified; I47.20 Ventricular tachycardia, unspecified; I50.22 Chronic systolic (congestive) heart failure; N17.9 Acute kidney failure, unspecified; I48.20 Chronic atrial fibrillation, unspecified; I25.10 Atherosclerotic heart disease of native coronary artery without angina pectoris; E03.9 Hypothyroidism, unspecified; E11.22 Type 2 diabetes mellitus with diabetic chronic kidney disease; N18.2 Chronic kidney disease, stage 2 (mild); E87.6 Hypokalemia; E11.65 Type 2 diabetes mellitus with hyperglycemia; I25.5 Ischemic cardiomyopathy; I48.91 Unspecified atrial fibrillation; F10.90 Alcohol use, unspecified, uncomplicated; E86.9 Volume depletion, unspecified; E78.5 Hyperlipidemia, unspecified; Z95.810 Presence of automatic (implantable) cardiac defibrillator; Z88.0 Allergy status to penicillin; Z95.1 Presence of aortocoronary bypass graft; Z87.891 Personal history of nicotine dependence
CPT/HCPCS: 36415; 36416; 71045; 76770; 80048; 80053; 81001; 82010; 82533; 82805; 83605; 83735; 84145; 84300; 84443; 84540; 85014; 85018; 85025; 85049; 87040; 87086; 87324; 87449; 93005; 93010; A4217; J0692; J1815; J2470; J3370; J3475; J3480; J3490; J7030; J7120; P9047

== ENCOUNTER 2024-09-25 12:11 | Outpatient (CLI) | payer MEDICARE ==
[2024-09-25 13:19] LABS: #Basophils 0.06 10x3/uL (0.0-0.2); %Eosinophils 6.2 % (0.0-10.0); %Lymphocytes 16.9 % (21.0-51.0); %Monocytes 9.8 % (0.0-10.0); %Neutrophils 65.6 % (42.0-75.0); Hematocrit 33.2 % (42.0-52.0); Hemoglobin 10.4 g/dL (14.0-18.0); Mean Corpuscular HGB CONC 31.3 g/dL (32.0-36.0); Mean Corpuscular Volume 95.7 fL (78.0-98.0); Mean Platelet Volume 9.7 fL (7.4-10.4); Platelet Count 180 10x3/uL (130-400); RBC Distribution Width 15.2 % (11.5-14.5); Red Blood Cell (RBC) Count 3.47 mill/uL (4.70-6.10)
[2024-09-25 13:33] LABS: Anion Gap 15 mmol/L (10-20); BUN (Urea Nitrogen) 21 mg/dL (8.4-25.7); Calc. Creatinine Clearance 0 mL/min (70-130); Calcium 9.4 mg/dL (7.8-10.44); Carbon Dioxide 21 mmol/L (23-31); Chloride 107 mmol/L (98-107); Estimated GFR 73; Glucose 95 mg/dL (83-110); Potassium 4.3 mmol/L (3.5-5.1); Sodium 139 mmol/L (136-145)
[2024-09-25 13:38] LABS: PTT 38.5 sec (22.9-36.1)
[2024-09-25 13:40] LABS: INR-International Normal Ratio 1.4; Prothrombin Time 17.6 sec (12.0-14.7)
== END 2024-09-25 12:12 ==
LOC: LABBT 12:11
PROVIDERS: ATTEND Internal Medicine Cardiovascular Disease
DX: Z01.812 Encounter for preprocedural laboratory examination (principal); I48.19 Other persistent atrial fibrillation
CPT/HCPCS: 80048; 85025; 85610; 85730

== ENCOUNTER 2024-09-28 07:59 | Day surgery (SDC) | payer MEDICARE ==
[2024-09-25 12:24] VITALS: BMI 29.4
[2024-09-28 10:28] LABS: #Basophils 0.07 10x3/uL (0.0-0.2); %Basophils 0.8 % (0.0-1.0); %Eosinophils 4.7 % (0.0-10.0); %Lymphocytes 14.3 % (21.0-51.0); %Monocytes 10.4 % (0.0-10.0); %Neutrophils 69.5 % (42.0-75.0); Hematocrit 30.6 % (42.0-52.0); Hemoglobin 9.9 g/dL (14.0-18.0); Mean Corpuscular HGB CONC 32.4 g/dL (32.0-36.0); Mean Corpuscular Volume 92.7 fL (78.0-98.0); Mean Platelet Volume 10.1 fL (7.4-10.4); Platelet Count 208 10x3/uL (130-400); RBC Distribution Width 15.4 % (11.5-14.5)
[2024-09-28] MEDS ORDERED: PROPOFOL 200 MG/20 ML VIAL ONE (11:53)
== END 2024-09-28 12:44 | disposition home or self-care (01) ==
LOC: SDC 07:59
PROVIDERS: ATTEND Internal Medicine Cardiovascular Disease
PROC: 5A2204Z Restoration of Cardiac Rhythm, Single (ICD-10-PCS; principal; 2024-09-28)
DX: I47.20 Ventricular tachycardia, unspecified (principal); I11.0 Hypertensive heart disease with heart failure; I50.22 Chronic systolic (congestive) heart failure; I48.19 Other persistent atrial fibrillation; I45.10 Unspecified right bundle-branch block; I25.5 Ischemic cardiomyopathy; I25.10 Atherosclerotic heart disease of native coronary artery without angina pectoris; E11.51 Type 2 diabetes mellitus with diabetic peripheral angiopathy without gangrene; E03.9 Hypothyroidism, unspecified; E78.00 Pure hypercholesterolemia, unspecified; Z95.810 Presence of automatic (implantable) cardiac defibrillator; Z87.891 Personal history of nicotine dependence; Z95.1 Presence of aortocoronary bypass graft; Z90.49 Acquired absence of other specified parts of digestive tract; Z98.890 Other specified postprocedural states; Z98.41 Cataract extraction status, right eye; Z98.42 Cataract extraction status, left eye; Z88.0 Allergy status to penicillin; Z79.890 Hormone replacement therapy; Z79.01 Long term (current) use of anticoagulants; Z79.02 Long term (current) use of antithrombotics/antiplatelets; Z79.84 Long term (current) use of oral hypoglycemic drugs; Z79.899 Other long term (current) drug therapy
CPT/HCPCS: 85025; 92961; J2704; 92960